=== PATIENT | female | born 1995 | race Caucasian/White ===

== ENCOUNTER 2017-01-03 15:10 | Emergency (ER) | payer MEDICAID ==
[~2017-01-03] VITALS: Ht 152.4 cm; Wt 50.3 kg
[~2017-01-03 15:10] MED LIST: NAPROSYN 500MG500 MG PO; NO HOME MEDS; NOMEDS; Tramadol HCl50 MG PO
[2017-01-03] MEDS ORDERED: MICROGESTIN 1/21 TAB PO (15:22)
--- NOTE | 2017-01-03 15:28 | Urgent Treatment Center Report ---
History of Present Issue Date/Time Seen by Provider 01/03/17 1527 Visit Reason Pt arrived:Walked Presenting Problem:PT STATES SORE THROAT, GWEN EAR PAIN, AND SINUS PRESSURE X2 DAYS Location if Accident: Onset of symptoms date/time:01/01/17/ or onset unknown for:MEDICAL HX UNKNOWN Have you (or family members/close friends) recently traveled outside the [place]? N If Yes, where/when: Have you had exposure to infectious disease within the past month? TB? Other? Specify: c/o "my sinuses. I have already been seen for this on Tuesday. I was prescribed amoxicillin but it is not helping. I am wanting to get a zpack because they work better and so much faster for me." pt c/o rhinorrhea, nasal congestion, PND leading to nausea, sinus pressure, gwen ear fullness, sore throat in the morning. Symptoms started late Tuesday, 3 days ago. Was seen at urgent care in [place] on Tuesday "because this was kicking my butt". Reports dx sinusitis and prescribed amoxicillin. No relief with tylenol and amoxicillin. Hasn't taken or tried anything else. No fever, aches, chills. Denies any symptoms prior to Tuesday evening. Source patient Exam Limitations no limitations ALLERGIES Coded Allergies: No Known Allergies (01/03/17) Home Medications Reported Medications NORETHINDRONE AC-ETH ESTRADIOL (Microgestin 21 1-20 Tablet) 1 TAB PO DAILY History Medical History General CAD? No Angina: No [place]: No Hypertension? No Hyperlipidemia? No CHF? No DVT? No PE? No COPD? No Asthma? No Anemia? No GERD? No Gastric ulcers? No GI Bleed? No Hernia? No Thyroid Problems? No Hypothyroidism? No CVA? No Seizures? No Diabetes? No Renal Insuffiency? No UTI? No Stones? No BPH? No GB Disease: No Nephritic Syndrome? No Asplenia? No Hepatitis? No Sickle Cell Disease? No Arthritis? No Migraines? No Cataracts? No Glaucoma? No MRSA? No HIV? No TB? No Anxiety? No Depression? No Cancer? No More? 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 Respiratory denies cough Gastrointestinal denies abdominal pain, denies diarrhea, denies vomiting Musculoskeletal see HPI Skin denies rash Psychiatric/Neurological see HPI, denies weakness, denies other (dizziness) Physical Exam Vital Signs Vital Signs Date Time Temp Pulse Resp B/P Pulse O2 O2 Flow FiO2 Ox Delivery Rate 01/03 1521 98.2 76 20 113/67 98 General Appearance normal appearance, no apparent distress Eye Exam - bilateral eye normal exam Ear, Nose, Throat normal ENT inspection (x/ thin PND) Neck non-tender, supple Respiratory Status No: respiratory distress. Lung Sounds anterior: lungs clear. posterior: lungs clear. bilateral: lungs clear. Cardiovascular regular rate/rhythm, no peripheral edema, no murmur Neurologic alert, oriented x 3 Mental status normal mood/affect Skin normal color, warm/dry Lymphatic no adenopathy Medical Decision Making LABS/Meds/Orders Pt receiving controlled substance in ED? No Departure Departure Time of Disposition 1546 Disposition DC Home or Self Care(routine) Clinical Impression Primary Impression: Upper respiratory virus Condition STABLE Referrals Adry ONTIVEROS,Griffin (Family) Follow up IMMEDIATELY for new or worsening symptoms OR no noticeable improvement over the next 48-72 hours. 911 for difficulty breathing or swallowing. Patient Instructions DI for Viral Upper Respiratory Infection -- Adult Additional Instructions Your symptoms are likely viral. An antibiotic will not make you feel better. This is why the amoxicillin hasn't helped. Antibiotics are for bacterial infections. The zpack won't help a virus either. Viruses have to run their course with treating the symptoms. I understand you would prefer to have an antibiotic because you know your body and I will give you one only for that reason. Remember that as we discussed, antibiotics do come with side effects and risk including allergic reactions and resistance. Resistance to antibiotics can cause serious complications in the future if there is no antibiotic to treat an infection you have. Carefully consider this before starting antibiotics for symptoms that are likely viral. I STRONGLY enc. you to try the conservative measures and over the counter medications prior to starting the antibiotic as these have a better chance of helping you feel better. STOP the amoxicillin as we discussed. * No sign of bacterial infection. Likely viral. Virus can take 7-14 days to run their course. Antibiotic prescribed only because you wanted it, not because I think it will help. * Monitor Temp. Tylenol every 4 hours as needed and/or ibuprofen every 6 hours as needed (as long as your primary care doctor has told you that it is ok to take both) for fever/aches/pain. ER if fever no less than 101 despite tylenol and ibuprofen * Encourage fluids, water, gatorade, powerade, pedialyte if infant/toddler/child * warm salt water gargles * warm fluids * sore throat lozenges * sleep elevated * humidifier/vaporizer * OTC sudafed. Ask the pharmacist for this. Prescription not required. * flonase 2 sprays each nostril daily but may take 2-3 days to notice improvement with it. Discharge Counseling Counseled pt/family regarding diagnosis, medications/RX, home care, follow up needs Prescriptions Current Visit Scripts Azithromycin (Zithromycin (Z-STEFF) 250MG Tab) 250 MG PO DAILY #6 TAB TAKE TWO (2) TABLETS ON DAY 1, THEN ONE (1) TABLET DAY #2 THRU #5 at [id number]
[2017-01-03] MEDS ORDERED: ZITHROMAX Z PA250 MG PO (15:51)
[2017-01-03 16:07] VITALS: BP 113/67
== END 2017-01-03 16:07 | disposition home or self-care (01) ==
LOC: UTC 15:10
DX: J06.9 Acute upper respiratory infection, unspecified (principal)

== ENCOUNTER 2017-02-16 10:42 | Emergency (ER) | payer MEDICAID ==
[~2017-02-16] VITALS: Ht 152.4 cm; Wt 49.9 kg
[~2017-02-16 10:42] MED LIST changes: +MICROGESTIN 1/21 TAB PO; +ZITHROMAX Z PA250 MG PO
[2017-02-16 10:58] LABS: URINE BILIRUBIN - DIPSTICK NEGATIVE (NEG); URINE BLOOD NEGATIVE (NEG)
[2017-02-16] MEDS ORDERED: DIFLUCAN150 MG PO (11:09)
--- NOTE | 2017-02-16 11:10 | Urgent Treatment Center Report ---
History of Present Issue Date/Time Seen by Provider 02/16/17 1100 Visit Reason Pt arrived:Walked Presenting Problem:PT C/O ITCHING/BURNING WITH URINATION X2 DAYS Location if Accident: Onset of symptoms date/time:/ or onset unknown for:MEDICAL HX UNKNOWN Have you (or family members/close friends) recently traveled outside the [place]? N If Yes, where/when: Have you had exposure to infectious disease within the past month? TB? Other? Specify: Patient state that she has recently been on some antibiotics for UTI state that after completeing the antibiotics she noticed that she was having some burning outside of her vaginal area after she urinates then itching State that she has also noticed that she has a thick white cottage cheese like odorless discharge. State that she often gets yeast infections after antibiotics and this feels like a yeast infection ALLERGIES Coded Allergies: No Known Allergies (01/03/17) Home Medications Active Scripts Azithromycin (Zithromycin (Z-STEFF) 250MG Tab) 250 MG PO DAILY #6 TAB Prov: 01/03/17 Reported Medications NORETHINDRONE AC-ETH ESTRADIOL (Microgestin 21 1-20 Tablet) 1 TAB PO DAILY History Medical History General CAD? No Angina: No [place]: No Hypertension? No Hyperlipidemia? No CHF? No DVT? No PE? No COPD? No Asthma? No Anemia? No GERD? No Gastric ulcers? No GI Bleed? No Hernia? No Thyroid Problems? No Hypothyroidism? No CVA? No Seizures? No Diabetes? No Renal Insuffiency? No UTI? No Stones? No BPH? No GB Disease: No Nephritic Syndrome? No Asplenia? No Hepatitis? No Sickle Cell Disease? No Arthritis? No Migraines? No Cataracts? No Glaucoma? No MRSA? No HIV? No TB? No Anxiety? No Depression? No Cancer? No More? No Immunization HX Ped.Immunizations UTD Yes DT/Tetanus 1-4 YRS Surgical Hx Previous Surgery?Y Tonsils EARTUBES Social History Smoking Hx Smoker: Never Smoker Tobacco: No Alcohol Alcohol: No Review of Systems All Other Systems Reviewed and Negative Genitourinary other (burning and itching vagina). Physical Exam Vital Signs Vital Signs Date Time Temp Pulse Resp B/P Pulse O2 O2 Flow FiO2 Ox Delivery Rate 02/16 1047 98.0 87 20 120/69 100 General Appearance normal appearance, WD/WN, no apparent distress Respiratory Status Yes: trachea midline, chest symmetrical, non tender chest. No: respiratory distress. Cardiovascular normal exam, regular rate/rhythm, no peripheral edema Neurologic alert, normal exam, oriented x 3 Comments Patient did not want to undergo vaginal exam. Complains of itching and burning around the vaginal opening with thick white cottage cheese like odorless discharge. Recently completed coarse of antibiotics. Has had yeast infections before and describes this as being familiar and like prior yeast infections she has had in the past Medical Decision Making LABS/Meds/Orders Pt receiving controlled substance in ED? No Results/Orders Laboratory Tests 02/16/17 1053: Urine Color YELLOW, Urine Appearance Clear, Urine pH 6.0, Ur Specific [place] 1.025, Urine Protein 3+ H, Urine Ketones NEGATIVE, Urine Blood NEGATIVE, Urine Nitrate NEGATIVE, Urine Bilirubin NEGATIVE, Urine Urobilinogen 0.2, Ur Leukocyte Esterase 1+ H, Urine Glucose NEGATIVE Orders Procedure Date/time Status [facility] 02/16 1053 Complete Departure Departure Time of Disposition 1106 Disposition DC Home or Self Care(routine) Clinical Impression Primary Impression: Yeast infection of the vagina Condition STABLE Referrals Jarvis ONTIVEROS,Lion Rider MD,Griffin (Family) Patient Instructions DI for Vaginal Yeast Infection, Vaginal Yeast Infection Additional Instructions Take medication as prescribed FOllow up with family doctor or OBGYN if symptoms persist REturn if needed Avoid bathes, bubble bathes and sex untill symptoms gone Discharge Counseling Counseled pt/family regarding diagnosis, medications/RX, home care, follow up needs Prescriptions Current Visit Scripts Fluconazole (Diflucan 150MG) 150 MG PO DAILY #2 TAB Take one tablet today then take second tablet in 72 hours at 1103
[2017-02-16 11:12] VITALS: BP 120/69
--- OUTSIDE RECORDS SUMMARY | 2017-02-19 08:18 | External Medical Summary Rpt | CCD ---
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 ALICIA FOR IM USE IAADIADOO 13526 [facility] 6 N URGENT ABD STREPTOCO CARE CCUS GROUP A GLUC BLD 04069 [facility] GLUC MNTR 6 DIST HLTH DIST HLTH DEV DEPT DEPT CLEARED REMIGIO FLOOD FDA SPEC HOME USE IAADIADOO 28894 [facility] DOMINGUEZ 6 N URGENT ABD INFLUENZA CARE ARTHROCEN [place] [facility] PENDLETON[facility] 6 ORTHOPAED ORTHOPAED ASPIR&/IN IC & HAND IC & HAND J INTERM JT/BURS W/O US INJECTION J1030 [facility] NESS 6 ORTHOPAED MAT METHYLPRE IC & HAND DNISOLONE ACETATE 40 MG INJECTION 37415 [facility] 5 [facility]OSTAL[facility] HOSP HOSP ARTHROGRA PHY/ CT/MRI ARTHG FLUOROSCO 38613 [facility] PIC 5 RADIOLOGY [facility] NEEDLE PLACEMENT ADD ON LOCM Q9967 [facility] [phone] PENTECOSTALISM PENTECOSTALISM MG/ML HOSP HOSP IODINE CONCENTRA TION PER ML MRI ANY 59594 [facility] JT UPPER 5 RADIOLOGY [facility] EXTREMITY ASSOC W/CONTRAS T MATRL INJ A9577 [facility]AL GADOBENAT 5 PENTECOSTALISM PENTECOSTALISM E HOSP HOSP DIMEGLUMI NE MULTIHANC E PER ML GLUC BLD 00034 [facility] GLUC MNTR 5 DIST HLTH DIST HLTH DEV DEPT DEPT CLEARED REMIGIO FLOOD FDA SPEC HOME USE RADEX 61597 [facility] NESS SHOULDER 5 ORTHOPAED MAT COMPLETE IC & HAND MINIMUM 2 VIEWS IADNA 39344 [facility] NEISS[facility]IA 5 DISTRICT DISTRICT TH DEPT HLTH DEPT GONORRHOE ALICIA ALICIA AE AMPLIFIED PROBE TQ IADNA 21250 [facility] CHLAMYDIA [address] [facility] DEPT HLTH DEPT TRACHOMAT ALICIA ALICIA IS AMPLIFIED PROBE TQ BLOOD 83863 FAMILY FAMILY COUNT 5 CARE CARE COMPLETE ASSOCIATE ASSOCIATE AUTO&AUTO S S DIFRNTL WBC BLOOD 17522 FAMILY FAMILY COUNT 4 CARE CARE COMPLETE ASSOCIATE ASSOCIATE AUTO&AUTO S S DIFRNTL WBC IAADIADOO 43085 FAMILY MULBERRY 4 CARE DAVID STREPTOCO ASSOCIATE CCUS S GROUP A CUL BACT 66928 COMBINED COMBINED XCPT 4 PHYSICIAN PHYSICIAN URINE S LA S LA BLOOD/STO OL AEROBIC ISOL ANTIBODY 06373 COMBINED COMBINED CHLAMYDIA 4 PHYSICIAN PHYSICIAN S LA S LA RADEX 93792 TONI TONI SHOULDER 2 ALLEY ALLEY COMPLETE MINIMUM 2 VIEWS E-STIM G0283 [facility] MISTRY 1/> AREAS 2 [facility] OTH THAN INC INC WND CARE PART TX PLAN THERAPEUT 60768 [facility] MISTRY IC PX 1/> 2 [facility] AREAS INC INC EACH 15 MIN EXERCISES APPL 69553 [facility] MISTRY MODALITY 2 [facility] 1/> AREAS INC INC VASOPNEUM ATIC DEVICES APPL 96441 [facility] MISTRY MODALITY 2 [facility] 1/> AREAS INC INC VASOPNEUM ATIC DEVICES THERAPEUT 32009 [facility] MISTRY IC PX 1/> 2 [facility] AREAS INC INC EACH 15 MIN EXERCISES E-STIM G0283 [facility] MISTRY 1/> AREAS 2 [facility] OTH THAN INC INC WND CARE PART TX PLAN E-STIM G0283 [facility] MISTRY 1/> AREAS 2 [facility]OS[facility] OTH THAN INC INC WND CARE PART TX PLAN THERAPEUT 74453 [facility] MISTRY IC PX 1/> 2 [facility] AREAS INC INC EACH 15 MIN EXERCISES APPLICATI 79132 [facility] MISTRY ON 2 [facility] MODALITY INC INC 1/> AREAS HOT/COLD PACKS APPLICATI 34393 [facility] MISTRY ON 2 [facility] MODALITY INC INC 1/> AREAS HOT/COLD PACKS APPL 25569 [facility] MISTRY MODALITY 2 [facility] 1/> AREAS INC INC VASOPNEUM ATIC DEVICES APPL 82485 [facility] MISTRY MODALITY 2 [facility] 1/> AREAS INC INC IONTOPHOR ESIS EA 15 MIN THERAPEUT 44420 [facility] MISTRY IC PX 1/> 2 [facility] AREAS INC INC EACH 15 MIN EXERCISES THERAPEUT 70073 [facility] MISTRY IC PX 1/> 2 [facility] AREAS INC INC EACH 15 MIN EXERCISES APPL 61387 [facility] MISTRY MODALITY 2 [facility] 1/> AREAS INC INC IONTOPHOR ESIS EA 15 MIN APPL 22258 [facility] MISTRY MODALITY 2 [facility] 1/> AREAS INC INC ELEC STIMJ UNATTENDE D APPLICATI 75431 [facility] MISTRY ON 2 [facility] MODALITY INC INC 1/> AREAS HOT/COLD PACKS APPL 71235 [facility] MISTRY MODALITY 2 [facility] 1/> AREAS INC INC VASOPNEUM ATIC DEVICES APPL 88116 [facility] FEDE MODALITY 2 [facility] 1/> AREAS INC INC ELEC STIMJ UNATTENDE D APPL 29053 [facility] MISTRY MODALITY 2 [facility] 1/> AREAS INC INC IONTOPHOR ESIS EA 15 MIN THERAPEUT 85356 [facility] MISTRY IC PX 1/> 2 [facility] AREAS INC INC EACH 15 MIN EXERCISES THERAPEUT 79913 [facility] MISTRY IC PX 1/> 2 [facility] AREAS INC INC EACH 15 MIN EXERCISES APPL 46806 [facility] MISTRY MODALITY 2 [facility] 1/> AREAS INC INC IONTOPHOR ESIS EA 15 MIN APPL 90173 [facility] MISTRY MODALITY 2 [facility] 1/> AREAS INC INC ELEC STIMJ UNATTENDE D APPL 82863 [facility] MISTRY MODALITY 2 [facility] 1/> AREAS INC INC VASOPNEUM ATIC DEVICES RADEX 31670 TONI TONI SHOULDER 2 ALLEY ALLEY COMPLETE MINIMUM 2 VIEWS RADEX 43146 TONI TONI SPINE 2 ALLEY ALLEY CERVICAL 4 OR 5 VIEWS PHYSICAL 72123 [facility]RY THERAPY 2 [facility] EVALUATIO INC INC N DESTRUCTI 28520 FAMILY FAMILY ON BENIGN 2 CARE CARE LESIONS ASSOCIATE ASSOCIATE UP TO 14 S S DEEP D9220 [facility] SEDATION/ 1 FOR HAVEN GENERAL ORAL&MAXI ANESTHESI LLOFA A-1ST 30 MINUTES THER 35571 [facility] PROPH/DX 1 FOR HAVEN NJX IV ORAL&MAXI PUSH LLOFA SINGLE/1S T SBST/DRUG ORTHOPANT 50547 [facility] OGRAM 1 FOR HAVEN ORAL&MAXI LLOFA IAADIADOO 90527 FAMILY MULBERRY 1 CARE DAVID STREPTOCO ASSOCIATE CCUS S GROUP A DESTRUCTI 62430 FAMILY FAMILY ON 1 CARE CARE PREMALIGN ASSOCIATE ASSOCIATE ANT S S LESION 1ST URNLS DIP 25765 [facility]RY 1 [facility] STICK/TAB INC INC LET REAGENT AUTO MICROSCOP Y RADEX 47494 [facility]ISTRY SPINE 1 [facility] THORACIC INC INC 3 VIEWS URINE 28609 [facility] MISTRY 1 [facility] TEST INC INC VISUAL COLOR CMPRSN METHS BLOOD 09089 FAMILY FAMILY COUNT 0 CARE CARE COMPLETE ASSOCIATE ASSOCIATE AUTO&AUTO S S DIFRNTL WBC IAADIADOO 46890 CHRISTOPHER J 0 CARE INFLUENZA ASSOCIATE S RADEX 67266 [facility] MISTRY HAND 0 [facility] MINIMUM 3 INC INC VIEWS BLOOD 26161 FAMILY MULBERRY, COUNT 0 CARE LEILANI T COMPLETE ASSOCIATE AUTO&AUTO S DIFRNTL WBC RADEX 39135 LOLA TONI, HAND 9 MEDICAL GHADA MINIMUM 3 IMAGING VIEWS ASSOCIATE S IIV3 27526 [facility] VACCINE 9 [facility] VIRUS 0.5 BANK ACCT ML DOSAGE IM USE MPSV4 95697 FAMILY MULBERRY, VACCINE 9 CARE LEILANI T GROUPS ASSOCIATE ACYW-135 S SUBQ USE 4VHPV 70256 FAMILY MULBERRY, VACCINE 3 9 CARE LEILANI T DOSE ASSOCIATE SCHEDULE S FOR IM USE IAADIADOO 47504 DARY[facility], 9 CARE R ANNABEL STREPTOCO ASSOCIATE CCUS S GROUP A ANALGESIA D9230 MOUNA MOUNA 9 DMD, DMD, [facility] S INHALATIO N OF NITROUS OXIDE 3D 72998 [facility] VÁZQUEZ, RENDERING 8 MEDICAL CLYDE P W/INTERP IMAGING & [place] [address] LOLA VÁZQUEZ, HEAD/BRAI 8 MEDICAL CLYDE P N W/O IMAGING CONTRAST ASSOCIATE MATERIAL S RADEX 80980 LOLA TONI, SPINE 8 MEDICAL GHADA CERVICAL IMAGING 6 OR MORE ASSOCIATE VIEWS S IAADIADOO 59541 FAMILY BRITO, 8 CARE John JIN STREPTOCO ASSOCIATE CCUS S GROUP A COLLECTIO 49665 [facility] DARYL, N 8 CARE John JIN CAPILLARY ASSOCIATE BLOOD S SPECIMEN IAADIADOO 84396 [facility] DARYL, 8 CARE John JIN STREPTOCO ASSOCIATE CCUS S GROUP A OPHTH 47592 SUNNI MOELLER, [facility] 8 TIFFANIE A TIFFANIE A XM&EVAL COMPRHNSV ESTAB PT 1/> ANALGESIA D9230 MOUNA MOUNA 8 DMD, DMD, [facility] S INHALATIO N OF NITROUS OXIDE BLOOD 66882 FAMILY MULBERRY, COUNT 8 CARE LEILANI T COMPLETE ASSOCIATE AUTO&AUTO S DIFRNTL WBC Encounters Encounter Start End Date Code Location Performer Type Date OFFICE 74711 [facility] 7 [facility] T VISIT 5 INC MINUTES [facility]OS[facility] - 7 7 [facility] OUTPATIEN INC T OFFICE 40651 [facility] AL[facility] OUTPATIEN 7 7 N URGENT T VISIT CARE 15 MINUTES OFFICE 53905 [facility] Kerri OUTPATIEN 7 7 PHYSICIAN T VISIT GROUP 15 MINUTES OFFICE 66749 [facility] GIBRAN OUTPATIEN 7 7 PHYSICIAN T VISIT GROUP 25 MINUTES OFFICE 18790 [facility] G[facility]AN OUTPATIEN 7 7 PHYSICIAN T VISIT GROUP 25 MINUTES OFFICE 46008 [facility] OUTPATIEN 6 6 PRIMARY BENJAMIN T NEW 45 CARE MINUTES OFFICE 20537 [facility] BERRIOS OUTPATIEN 6 6 PHYSICIAN SHANTAL T VISIT S GROUP 15 MINUTES OFFICE 80881 [facility] OUTPATIEN 6 6 PHYSICIAN SHANTAL T NEW 30 S GROUP MINUTES OFFICE 51220 [facility]ILY DARYL OUTPATIEN 6 6 CARE R H T VISIT ASSOCIATE 15 S MINUTES OFFICE 37649 [facility] 6 [facility] T VISIT DEPT DEPT 10 REMIGIO BOYCENicola MINUTES OFFICE 13952 [facility] RABIEE OUTPATIEN 6 6 N URGENT ABD T VISIT CARE 15 MINUTES OFFICE 08306 [facility] T VISIT 5 HLTH DEPT HLTH DEPT MINUTES [facility] OFFICE 81625 [facility] T VISIT HLTH DEPT HLTH DEPT 10 [facility] MINUTES OFFICE 12125 [facility] R[facility] OUTPATIEN 6 6 N URGENT ABD T VISIT CARE 15 MINUTES OFFICE 05939 [facility] 6 6 [facility] T VISIT DEPT DEPT 10 REMIGIO FLOOD MINUTES OFFICE 43999 [facility] 6 6 [facility] T VISIT DEPT DEPT 10 REMIGIO FLOOD MINUTES OFFICE 36055 [facility] OUTPATIEN 6 6 N URGENT ABD T NEW 30 CARE MINUTES HOSPITAL [facility]AL - 5 5 [facility] OUTPATIEN HOSP T OFFICE 89448 [facility] JULIA OUTPATIEN 5 5 PHYSICIAN PIEDAD T VISIT S GROUP 15 MINUTES OFFICE 66386 [facility] 5 5 [facility] T VISIT DEPT DEPT 10 REMIGIO FLOOD MINUTES OFFICE 17682 [facility] 5 5 [facility] T VISIT DEPT DEPT 10 REMIGIO FLOOD MINUTES OFFICE 32789 LOLA NESS OUTPATIEN 5 5 ORTHOPAED MAT T NEW 30 IC & HAND MINUTES OFFICE 91761 [facility] 5 5 [facility] T VISIT DEPT DEPT 10 REMIGIO FLOOD MINUTES OFFICE 20050 [facility] DARYL OUTPATIEN 5 5 CARE R H T VISIT ASSOCIATE 15 S MINUTES OFFICE [address] [facility] [address] OUTPATIEN 5 [facility] 15 MINUTES OFFICE 35965 [facility] 5 5 [facility] V[facility] 15 MINUTES PERIODIC 10041 [facility] PREVENTIV 5 5 [facility] E MED EST HLTH DEPT TH DEPT PATIENT [facility] OFFICE 11214 FAMILY DARYL OUTPATIEN 5 5 CARE R H T VISIT ASSOCIATE 15 S MINUTES PERIODIC 86241 [facility] FRYMAN PREVENTIV 5 5 PHYSICIAN EUG E MED EST S GROUP PATIENT OFFICE 16691 FAMILY MULBERRY OUTPATIEN 5 5 CARE DAVID T VISIT ASSOCIATE 15 S MINUTES OFFICE 66665 [facility] FRYMAN OUTPATIEN 5 5 PHYSICIAN EUG T VISIT S GROUP 15 MINUTES OFFICE 16017 FAMILY MULBERRY OUTPATIEN 4 4 CARE DAVID T VISIT ASSOCIATE 15 S MINUTES OFFICE 49819 [facility] 4 4 [facility] T VISIT DEPT DEPT 10 REMIGIO FLOOD MINUTES OFFICE 68087 [facility] AARON OUTPATIEN 4 4 PHYSICIAN PIEDAD T VISIT S GROUP 15 MINUTES INITIAL 56816 [facility]T PREVENTIV 4 4 HARJINDER HARJINDER E MEDICINE NEW PT AGE 12-17 YR OFFICE 20663 [facility] 4 4 [facility] T VISIT [facility] DEPT 10 ALICIA ALICIA MINUTES Emergency YEHUDA Mistry MD (ER) 3 10:49 3 12:35 [facility] Emergency YEHUDA Newman MD (ER) 3 21:35 3 22:40 [facility] OFFICE 26282 MULBERRY MULBERRY OUTPATIEN 3 3 DAVID DAVID T VISIT 15 MINUTES OFFICE 20715 MULBERRY MULBERRY OUTPATIEN 2 2 DAVID DAVID T VISIT 15 MINUTES OFFICE 93041 [facility] OUTPATIEN 2 2 T VISIT 15 MINUTES HOSPITAL [facility] - 2 2 [facility] OUTPATIEN INC T OFFICE 68439 MULBERRY MULBERRY OUTPATIEN 2 2 DAVID DAVID T VISIT 15 MINUTES HOSPITAL [facility] - 2 2 [facility] OUTPATIEN INC T OFFICE 54728 MULBERRY MULBERRY OUTPATIEN 2 2 DAVID DAVID T VISIT 15 MINUTES OFFICE 68208 FAMILY OUTPATIEN 2 2 CARE T VISIT ASSOCIATE 15 S MINUTES OFFICE 49164 [facility] LUJAN OUTPATIEN 2 2 T VISIT 10 MINUTES OFFICE 86606 [facility] OUTPATIEN 2 2 [facility] 10 MINUTES OFFICE 38132 [facility] OUTPATIEN 2 2 [facility] 10 MINUTES OFFICE 76540 [facility]E OUTPATIEN 2 2 [facility] 10 MINUTES OFFICE 03879 APOLLO BUSTILLOS OUTPATIEN 2 2 CHR CHR T VISIT 10 MINUTES OFFICE 93871 JOSEPH RUIZ OUTPATIEN 2 2 GABBY GABBY T VISIT 15 MINUTES OFFICE 41077 RAMONA GREENE OUTPATIEN 1 1 LANNY LANNY T VISIT 10 MINUTES OFFICE 34226 [facility] MISTRY OUTPATIEN 1 1 [facility] 10 MINUTES OFFICE 55026 [facility] OUTPATI[facility] 1 1 FOR HAVEN T NEW 20 ORAL&MAXI MINUTES LLOFA OFFICE 20776 [facility] MISTRY OUTPATIEN 1 1 [facility] 10 MINUTES OFFICE 79164 FAMILY DARYL OUTPATIEN 1 1 CARE R H T VISIT ASSOCIATE 15 S MINUTES OFFICE 56228 FAMILY GARTH OUTPATIEN 1 1 CARE DAVID T VISIT ASSOCIATE 15 S MINUTES OFFICE 44145 [facility] MISTRY OUTPATIEN 1 1 [facility] 10 MINUTES OFFICE 38021 [facility] MISTRY OUTPATIEN 1 1 [facility] 15 MINUTES EMERGENCY 30968 [facility] 1 1 [facility] DEPARTMEN INC T VISIT LOW/MODER SEVERITY [facility]OSPITAL [facility] - 1 1 [facility] OUTPATIEN INC T OFFICE 96200 FAMILY CHRISTOPHER J OUTPATIEN 0 0 CARE T VISIT ASSOCIATE 15 S MINUTES EMERGENCY 77339 [facility] 0 0 [facility] DEPARTMEN INC T VISIT MODERATE SEVERITY EMERGENCY 51811 DOLORES GLASS 0 0 EMERGENCY III [facility] T VISIT MODERATE SEVERITY HOSPITAL [facility] - 0 0 [facility] OUTPATIEN INC T OFFICE 04056 FAMILY MULFLORESITA OUTPATIEN 0 0 CARE DAVID T VISIT ASSOCIATE 15 S MINUTES INITIAL 29510 SANDRA DOMINGUEZ PREVENTIV 0 0 N URGENT ABD E CARE MEDICINE NEW PT AGE 12-17 YR OFFICE 24937 FAMILY LIANG, OUTPATIEN 0 0 CARE LEILANI T T VISIT ASSOCIATE 15 S MINUTES OFFICE 48938 FAMILY LIANG, OUTPATIEN 9 9 CARE LEILANI T T VISIT ASSOCIATE 15 S MINUTES HOSPITAL [facility] - 9 9 [facility] OUTPATIEN INC T PERIODIC 05146 FAMILY LIANG, PREVENTIV 9 9 CARE LEILANI T E MED EST ASSOCIATE PATIENT S OFFICE 78087 [facility] GAMALIEL OUTPATIEN 9 9 HEALTH T VISIT CENTRAL ELEMENTAR 15 BANK ACCT Y SCHOOL MINUTES HEALTH NURSE OFFICE 09680 FAMILY BRITO, OUTPATIEN 9 9 CARE R ANNABEL T VISIT ASSOCIATE 15 S MINUTES PERIODIC 82826 [facility] GAM[facility]IEL PREVENTIV 9 9 HEALTH E MED EST CENTRAL ELEMENTAR PATIENT BANK ACCT Y SCHOOL HEALTH NURSE OFFICE 52548 [facility] OUTPATIEN 9 9 HEALTH T VISIT CENTRAL ELEMENTAR 15 BANK ACCT Y SCHOOL MINUTES HEALTH NURSE EMERGENCY 54176 BALDEV HOLLAND, DEPT 8 8 NATIONAL RONDAL E VISIT CORPORATI HIGH ON SEVERITY& THREAT [facility] OFFICE 52208 FAMILY BRITO, OUTPATIEN 8 8 CARE R ANNABEL T VISIT ASSOCIATE 15 S MINUTES OFFICE 03079 FAMILY BRITO, OUTPATIEN 8 8 CARE R ANNABEL T VISIT ASSOCIATE 15 S MINUTES OFFICE 93182 [facility] GAMALIEL OUTPATIEN 8 8 HEALTH T VISIT CENTRAL ELEMENTAR 15 BANK ACCT Y SCHOOL MINUTES HEALTH NURSE OFFICE 77383 [facility] GAMALIEL OUTPATIEN 8 8 HEALTH T NEW 10 CENTRAL ELEMENTAR MINUTES BANK ACCT Y SCHOOL HEALTH NURSE OFFICE 24651 FAMILY LIANG, OUTPATIEN 8 8 CARE LEILANI T T VISIT ASSOCIATE 15 S MINUTES OFFICE 11024 FAMILY JOSE RAMON LIANG 8 8 CARE LEILANI Narvaez VISIT ASSOCIATE 15 S MINUTES
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
--- OUTSIDE RECORDS SUMMARY | 2017-02-19 08:22 | External Medical Summary Rpt | CCD ---
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 NEW 20 ORAL&MAXI MINUTES LLOFA OFFICE 71094 [facility] OUTPATI[facility] 1 1 [facility] 10 MINUTES OFFICE 14909 FAMILY DARYL OUTPATIEN 1 1 CARE R H T VISIT ASSOCIATE 15 S MINUTES OFFICE 34111 FAMILY GARTH OUTPATIEN 1 1 CARE DAVID T VISIT ASSOCIATE 15 S MINUTES OFFICE 13575 [facility] OUTPATI[facility] 1 1 [facility] 10 MINUTES OFFICE 61889 [facility] MISTRY OUTPATIEN 1 1 [facility]ES [facility] OUTPATI[facility] T EMERGENCY 39188 [facility] 1 1 [facility] DEPARTMEN INC T VISIT LOW/MODER SEVERITY OFFICE 92918 FAMILY CHRISTOPHER J OUTPATIEN 0 0 CARE T VISIT ASSOCIATE 15 S MINUTES [facility]OSP[facility] - [facility] 0 [facility] OUTPATIEN INC T EMERGENCY 99417 DOLORES GLASS 0 0 EMERGENCY III [facility] DEPART[facility] T VISIT MODERATE SEVERITY EMERGENCY 22537 [facility] 0 0 [facility]PART[facility] T VISIT MODERATE SEVERITY OFFICE 27839 FAMILY MULBERRY OUTPATIEN 0 0 CARE DAVID T VISIT ASSOCIATE 15 S MINUTES INITIAL 89794 SANDRA DOMINGUEZ PREVENTIV 0 0 N URGENT ABD E CARE MEDICINE NEW PT AGE 12-17 YR OFFICE 07795 FAMILY GARTH, OUTPATIEN 0 0 CARE LEILANI T T VISIT ASSOCIATE 15 S MINUTES OFFICE 61256 FAMILY GARTH, OUTPATIEN 9 9 CARE LEILANI T T VISIT ASSOCIATE 15 S MINUTES [facility] - 9 9 [facility] T PERIODIC 81183 FAMILY MULBERRY, PREVENTIV 9 9 CARE LEILANI T E MED EST ASSOCIATE PATIENT S OFFICE 06289 [facility] OUT[facility] 9 9 HEALTH T VISIT CENTRAL ELEMENTAR 15 BANK ACCT Y SCHOOL MINUTES HEALTH NURSE OFFICE 79859 FAMILY DARYL, OUTPATIEN 9 9 CARE R ANNABEL T VISIT ASSOCIATE 15 S MINUTES PERIODIC 60051 [facility] PREVENTIV 9 9 HEALTH E MED EST CENTRAL ELEMENTAR PATIENT BANK ACCT Y SCHOOL - HEALTH NURSE OFFICE 01523 [facility] OUTPATIEN 9 9 HEALTH T VISIT CENTRAL ELEMENTAR 15 BANK ACCT Y SCHOOL MINUTES HEALTH NURSE EMERGENCY 12904 BALDEV HOLLAND, DEPT 8 8 NATIONAL RONDAL E VISIT CORPORATI HIGH ON SEVERITY& THREAT FUN OFFICE 25476 FAMILY DARYL, OUTPATIEN 8 8 CARE R ANNABEL T VISIT ASSOCIATE 15 S MINUTES OFFICE 00055 FAMILY DARYL, OUTPATIEN 8 8 CARE R ANNABEL T VISIT ASSOCIATE 15 S MINUTES OFFICE 84721 [facility] OUTPATIEN 8 8 HEALTH T VISIT CENTRAL ELEMENTAR 15 BANK ACCT Y SCHOOL MINUTES HEALTH NURSE OFFICE 24754 [facility] OUTPATIEN 8 8 HEALTH T NEW 10 CENTRAL ELEMENTAR MINUTES BANK ACCT Y SCHOOL HEALTH NURSE OFFICE 35614 JOSE RAMON GUILLORY 8 8 CARE LEILANI Narvaez VISIT ASSOCIATE 15 S MINUTES OFFICE 45922 JOSE RAMON GUILLORY 8 8 CARE LEILANI Narvaez VISIT ASSOCIATE 15 S MINUTES
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
--- OUTSIDE RECORDS SUMMARY | 2017-02-19 08:23 | External Medical Summary Rpt ---
Author Author RIVER Hybrent, RIVER Hybrent Organization [employer] Address Unknown Phone Unavailable Results CHLAMYDIA AND GONORRHEA TESTING Observa Value Referen Units Interpr Notes Date tion ce etation Range COLLECT D. 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 in tion in 10:00 source source source source AM data data data data ETHNICI WHITE, No No No No Oct 22 TY NON-HIS informa informa informa informa 2015 PANIC tion in tion in tion in tion in 10:00 source source source source AM data data data data KIT No No No No Oct 22 EXPIRAT 5 informa informa informa informa 2015 ION tion in tion in tion in tion in 10:00 DATE source source source source AM data data data data SYMPTOM NO No No No No Oct 22 S informa informa informa informa 2015 tion in tion in tion in tion in 10:00 source source source source AM data data data data REASON VOLUNTE No No No No Oct 22 FOR ER/MEDI informa informa informa informa 2015 REQUEST LEYDI tion in tion in tion in tion in 10:00 PROBLEM source source source source AM data data data data SPECIME URINE No No No No Oct 22 N informa informa informa informa 2015 SOURCE tion in tion in tion in tion in 10:00 source source source source AM data data data data PREGNAN NO No No No No Oct 22 T informa informa informa informa 2015 tion in tion in tion in tion in 10:00 source source source source AM data data data data CHART [id number]- [id number] No No No Oct 22 NUMBER [id number] informa informa informa informa 2015 tion in tion in tion in tion in 10:00 source source source source AM data data data data Chlamyd NEGATIV No No No NEGATIV Oct 22 ia E informa informa informa E 2015 trachom tion in tion in tion in RESULT= 10:00 atis source source source WITHIN AM rRNA data data data NORMAL [Presen ce] in LIMITSP Unspeci OSITIVE fied specime RESULT= n by Probe & ABNORMA target LEQUIVO LEYDI amplifi RESULT= cation method INDETER MINATEU NSATISF ACTORY RESULT= INVALID Neisser NEGATIV No No No NEGATIV Oct 22 ia E informa informa informa E 2015 gonorrh tion in tion in tion in RESULT= 10:00 oeae source source source WITHIN AM rRNA data data data NORMAL [Presen ce] in LIMITSP Unspeci OSITIVE fied specime RESULT= n by Probe & ABNORMA target LEQUIVO LEYDI amplifi RESULT= cation method INDETER MINATEU NSATISF ACTORY RESULT= INVALID THE APTIMA COMBO 2 ASSAY IS NOT INTENDE D FOR THE EVALUAT ION OF SUSPECT EDSEXUA L ABUSE OR FOR OTHER MEDICO- LEGAL INDICAT IONS. FOR THOSE PATIENT S FORWHOM A FALSE POSITIV E RESULT MAY HAVE ADVERSE PSYCHO- SOCIAL IMPACT, [facility] [place] MMENDS RETESTI NG.\.br \This report contain s patient informa tion that must be protect ed in accorda nce with the Health Insuran ce Portabi lity and Account ability Act. CHLAMYDIA AND GONORRHEA TESTING Observa Value Referen Units Interpr Notes Date tion ce etation Range COLLECT D. 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 in tion in 10:00 source source source source AM data data data data ETHNICI WHITE, No No No No Oct 22 TY NON-HIS informa informa informa informa 2015 PANIC tion in tion in tion in tion in 10:00 source source source source AM data data data data KIT No No No No Oct 22 EXPIRAT 5 informa informa informa informa 2015 ION tion in tion in tion in tion in 10:00 DATE source source source source AM data data data data SYMPTOM NO No No No No Oct 22 S informa informa informa informa 2015 tion in tion in tion in tion in 10:00 source source source source AM data data data data REASON VOLUNTE No No No No Oct 22 FOR ER/MEDI informa informa informa informa 2015 REQUEST LEYDI tion in tion in tion in tion in 10:00 PROBLEM source source source source AM data data data data SPECIME URINE No No No No Oct 22 N informa informa informa informa 2015 SOURCE tion in tion in tion in tion in 10:00 source source source source AM data data data data PREGNAN NO No No No No Oct 22 T informa informa informa informa 2015 tion in tion in tion in tion in 10:00 source source source source AM data data data data CHART [id number] No No No Oct 22 NUMBER [id number] informa informa informa informa 2015 tion in tion in tion in tion in 10:00 source source source source AM data data data data Chlamyd Pending No No No No Oct 22 ia informa informa informa informa 2015 trachom tion in tion in tion in tion in 10:00 atis source source source source AM rRNA data data data data [Presen ce] in Unspeci fied specime n by Probe & target amplifi cation method Neisser Pending No No No \.br\Oct 22 ia informa informa informa is 2015 gonorrh tion in tion in tion in report 10:00 oeae source source source contain AM rRNA data data data s [Presen patient ce] in Unspeci informa fied tion specime that n by must be Probe & target protect ed in amplifi accorda cation nce method with the Health Insuran ce Portabi lity and Account ability Act.
--- OUTSIDE RECORDS SUMMARY | 2017-02-19 08:23 | External Medical Summary Rpt | CCD ---
Author Author , RIVER HOLMAN Address Unknown Phone [email or web address] Immunization Name Date Rout CVX Reac Dose Comm Prov Is Faci e tion ent ider Refu lity Give sed n Infl 03-1 150 0.50 Hist TAL No H149 uenz 8-20 mL oric E a 16 al ANDR Quad Info EA Inj rmat ion - Sour ce Unsp ecif ied HPV4 06-2 62 999 Hist [place] No RI 9-20 oric (Gar 09 al dasi Info l) rmat ion - Sour ce Unsp ecif ied MCV4 06-2 114 999 Hist [place] No RI 9-20 oric (Men 09 al actr Info a) rmat ion - Sour ce Unsp ecif ied Tdap 02-2 115 999 Hist H149 No H149 , 4-20 oric Adso 09 al rbed Info rmat ion - Sour ce Unsp ecif ied Vari 04-1 21 999 Hist [place] No RI cell 1-20 oric a 02 al Info rmat ion - Sour ce Unsp ecif ied Gagandeep 11-1 10 999 Hist [place] No RI o-IP 9-20 oric V 01 al Info rmat ion - Sour ce Unsp ecif ied DTP 11-1 1 999 Hist RI No RI 9-20 oric 01 al Info rmat ion - Sour ce Unsp ecif ied MMR 11-1 3 999 Hist RI No RI 9-20 oric 01 al Info rmat ion - Sour ce Unsp ecif ied DTP 04-1 1 999 Hist RI No RI 2-19 oric 99 al Info rmat ion - Sour ce Unsp ecif ied MMR 04-1 3 999 Hist RI No RI 2-19 oric 99 al Info rmat ion - Sour ce Unsp ecif ied Gagandeep 04-1 10 999 Hist RI No RI o-IP 2-19 oric V 99 al Info rmat ion - Sour ce Unsp ecif ied MMR 01-2 3 999 Hist H149 No H149 6-19 oric 99 al Info rmat ion - Sour ce Unsp ecif ied DTaP 01-2 107 999 Hist H149 No H149 , UF 6-19 oric 99 al Info rmat ion - Sour ce Unsp ecif ied Gagandeep 10-0 2 999 Hist H149 No H149 o-OP 6-19 oric V 98 al Info rmat ion - Sour ce Unsp ecif ied Hib, 10-0 17 999 Hist H149 No H149 UF 6-19 oric 98 al Info rmat ion - Sour ce Unsp ecif ied Vari 10-0 21 999 Hist H149 No H149 cell 6-19 oric a 98 al Info rmat ion - Sour ce Unsp ecif ied DTP- 03-2 22 999 Hist RI No RI Hib 4-19 oric 98 al Info rmat ion - Sour ce Unsp ecif ied Hep 03-2 45 999 Hist RI No RI B, 4-19 oric UF 98 al Info rmat ion - Sour ce Unsp ecif ied DTP- 01-2 22 999 Hist RI No RI Hib 0-19 oric 98 al Info rmat ion - Sour ce Unsp ecif ied Gagandeep 01-2 10 999 Hist RI No RI o-IP 0-19 oric V 98 al Info rmat ion - Sour ce Unsp ecif ied DTP- 11-2 22 999 Hist RI No RI Hib 1-19 oric 97 al Info rmat ion - Sour ce Unsp ecif ied Gagandeep 11-2 10 999 Hist RI No RI o-IP 1-19 oric V 97 al Info rmat ion - Sour ce Unsp ecif ied Hep 10-2 8 999 Hist H149 No H149 B, 3-19 oric ped/ 97 al adol Info rmat ion - Sour ce Unsp ecif ied Hep 09-1 Intr 45 999 Hist RI No RI B, 9-19 amus oric UF 97 cula al r Info rmat ion - Sour ce Unsp ecif ied
--- OUTSIDE RECORDS SUMMARY | 2017-02-19 08:23 | External Medical Summary Rpt ---
Author Author [employer]IVER [employer], [employer]IVER [employer] Organization [employer] Address Unknown Phone Unavailable Results CHLAMYDIA AND GONORRHEA TESTING Observa Value Referen Units Interpr Notes Date tion ce etation Range COLLECT D. 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 CHLAMYDIA AND GONORRHEA TESTING Observa Value Referen Units Interpr Notes Date tion ce etation Range COLLECT D. 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
--- OUTSIDE RECORDS SUMMARY | 2017-02-19 08:23 | External Medical Summary Rpt | CCD ---
Author Author , RIVER HOLMAN Address Unknown Phone [email or web address] Immunization Name Date Rout CVX Reac Dose Comm Prov Is Faci e tion ent ider Refu lity Give sed n Infl 03-1 150 0.50 Hist TAL No H149 uenz 8-20 mL oric E a 16 al ANDR Quad Info EA Inj rmat ion - Sour ce Unsp ecif ied HPV4 06-2 62 999 Hist [place] No [place] 9-20 oric (Gar 09 al dasi Info l) rmat ion - Sour ce Unsp ecif ied MCV4 06-2 114 999 Hist [place] No [place] 9-20 oric (Men 09 al actr Info a) rmat ion - Sour ce Unsp ecif ied Tdap 02-2 115 999 Hist H149 No H149 , 4-20 oric Adso 09 al rbed Info rmat ion - Sour ce Unsp ecif ied Vari 04-1 21 999 Hist [place] No [place] cell 1-20 oric a 02 al Info rmat ion - Sour ce Unsp ecif ied Gagandeep 11-1 10 999 Hist [place] o-IP 9-20 oric V 01 al Info rmat ion - Sour ce Unsp ecif ied DTP 11-1 1 999 Hist [place] 9-20 oric 01 al Info rmat ion - Sour ce Unsp ecif ied MMR 11-1 3 999 Hist [place] 9-20 oric 01 al Info rmat ion - Sour ce Unsp ecif ied DTP 04-1 1 999 Hist [place] 2-19 oric 99 al Info rmat ion - Sour ce Unsp ecif ied MMR 04-1 3 999 Hist [place] No [place] 2-19 oric 99 al Info rmat ion - Sour ce Unsp ecif ied Gagandeep 04-1 10 999 Hist [place] o-IP 2-19 oric V 99 al Info [...] ecif ied DTP- 03-2 22 999 Hist [place] Hib 4-19 oric 98 al Info rmat ion - Sour ce Unsp ecif ied Hep 03-2 45 999 Hist [place] No [place] B, 4-19 oric UF 98 al Info rmat ion - Sour ce Unsp ecif ied DTP- 01-2 22 999 Hist [place] Hib 0-19 oric 98 al Info rmat ion - Sour ce Unsp ecif ied Gagandeep 01-2 10 999 Hist [place] o-IP 0-19 oric V 98 al Info rmat ion - Sour ce Unsp ecif ied DTP- 11-2 22 999 Hist [place] Hib 1-19 oric 97 al Info rmat ion - Sour ce Unsp ecif ied Gagandeep 11-2 10 999 Hist [place] No [place] o-IP 1-19 oric V 97 al Info rmat ion - Sour ce Unsp ecif ied Hep 10-2 8 999 Hist H149 No H149 B, 3-19 oric ped/ 97 al adol Info rmat ion - Sour ce Unsp ecif ied Hep 09-1 Intr 45 999 Hist [place] No [place] B, 9-19 amus oric UF 97 cula al r Info rmat ion - Sour ce Unsp ecif ied
[2017-03-07] MEDS ORDERED: BACTRIM DS 8001 TA1 PO (14:20)
== END 2017-02-16 11:12 | disposition home or self-care (01) ==
LOC: UTC 10:42
PROVIDERS: Nurse Practitioner
DX: B37.3 Candidiasis of vulva and vagina (principal)

== ENCOUNTER 2017-03-14 14:12 | Emergency (ER) | payer MEDICAID ==
[~2017-03-14] VITALS: Ht 152.4 cm; Wt 52.2 kg
[~2017-03-14 14:12] MED LIST changes: +BACTRIM DS 8001 TA1 PO; +DIFLUCAN150 MG PO
--- NOTE | 2017-03-14 14:16 | Emergency Room Report ---
History of Present Illness Time Seen by MD Tellez Presenting Problem in Triage Pt arrived:Walked Presenting Problem:PT C/O SHARP PAINS IN HER LOWER ABD AND NAUSEA FOR THE PAST WEEK. 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 N Clinical Suspician of Infection? N Mental Status: 1 - Regular (Normal Baseline) Sepsis Risk:Low Sepsis Risk Have you (or family members/close friends) recently traveled outside the [place]? N If Yes, where/when: Have you had exposure to infectious disease within the past month? N TB? Other? Specify: Patient reports very light menses one week ago, and no menses last month; she is worried she may be . She is on OCP per her PCP and denies missing any pills. She has felt bloated since starting Bactrim last week for UTI. No fever. Having some nausea and bilateral pelvic bloating. Has occasional whitish discharge, not itching; denies new sexual partners; denies dyspareunia. No hematuria. No diarrhea. ALLERGIES Coded Allergies: No Known Allergies (01/03/17) Home Medications Reported Medications NORETHINDRONE AC-ETH ESTRADIOL (Microgestin 21 1-20 Tablet) 1 TAB PO DAILY History Medical History General CAD? No Angina: No VT: No Hypertension? No Hyperlipidemia? No CHF? No DVT? No PE? No COPD? No Asthma? No Anemia? No GERD? No Gastric ulcers? No GI Bleed? No Hernia? No Thyroid Problems? No Hypothyroidism? No CVA? No Seizures? No Diabetes? No Renal Insuffiency? No End Stage Renal Disease? No UTI? No Stones? No BPH? No GB Disease: No Nephritic Syndrome? No Asplenia? No Hepatitis? No Sickle Cell Disease? No Arthritis? No Migraines? No Cataracts? No Glaucoma? No MRSA? No HIV? No TB? No Anxiety? No Depression? No Cancer? No More? No Immunization Hx DT/Tetanus 1-4 YRS Surgical Hx Previous Surgery?Y Tonsils EARTUBES Social History Alcohol Alcohol: No Review of Systems All Other Systems Reviewed and Negative Gastrointestinal see HPI Genitourinary see HPI. Physical Exam Vital Signs Vital Signs Date Time Temp Pulse Resp B/P Pulse O2 O2 Flow FiO2 Ox Delivery Rate 03/14 1418 98.3 100 16 159/80 98 General Appearance normal appearance, WD/WN, no apparent distress Eye Exam - bilateral eye normal exam Neck normal inspection, non-tender, supple Respiratory Status Yes: trachea midline, chest symmetrical, non tender chest. No: respiratory distress, tender on palpation, use of accessory muscles, pain on inspiration, pain on expiration, productive cough, non productive cough. Lung Sounds bilateral: normal breath sounds, lungs clear. Cardiovascular normal exam, regular rate/rhythm, no peripheral edema, no gallop, no JVD, no murmur, no rub Gastrointestinal normal bowel sounds, normal exam, non tender, soft, no organomegaly, no guarding, no rebound Back no CVA tenderness Extremities normal range of motion Strength 5 Upper Ext (L), 5 Upper Ext (R), 5 Lower Ext (L), 5 Lower Ext (R) Neurologic alert, normal exam, no motor/sensory deficits, oriented x 3 Glascow Coma Scale Glascow Coma Scale Response Value EYE response: 4 Spontaneously 4 MOTOR response: 6 OBEYS 6 VERBAL response: 5 Oriented & Converses 5 Total 15 Skin intact, normal color, warm/dry Medical Decision Making LABS/Meds/Orders Pt receiving controlled substance in ED? No Results/Orders Laboratory Tests 03/14/17 1424: Urine Color YELLOW, Urine Appearance CLEAR, Urine pH 6.0, Ur Specific Assumption >= 1.030, Urine Protein TRACE H, Urine Ketones NEGATIVE, Urine Blood NEGATIVE, Urine Nitrate NEGATIVE, Urine Bilirubin NEGATIVE, Urine Urobilinogen 2.0, Ur Leukocyte Esterase 1+ H, Urine Glucose NEGATIVE Current Medication Orders Sig/Frida Start time Last Medication Dose Route Stop Time Status Admin Ceftriaxone Sodium 250 MG ONCE ONE 03/14 1500 AC 03/14 IM 03/14 1501 1458 Lidocaine HCl 0.9 ML ONCE ONE 03/14 1500 AC 03/14 IM 03/14 1501 1458 Ceftriaxone Sodium 0 .STK-MED ONE 03/14 1456 DC .ROUTE Lidocaine HCl 0 .STK-MED ONE 03/14 1455 DC IJ Orders Procedure Date/time Status CHLAMYDIA/GC 03/14 1437 Active URINALYSIS/COMPLETE 03/14 141 Complete URINE 03/14 141 Complete Departure Departure Time of Disposition 1454 Disposition DC Home or Self Care(routine) Clinical Impression Primary Impression: UTI (urinary tract infection) Qualifiers: Urinary tract infection type: acute cystitis Hematuria presence: without hematuria Qualified Code: N30.00 - Acute cystitis without hematuria Condition STABLE Referrals Jarvis ONTIVEROS,Lion Oscar MD,Rolando Paige Patient Instructions Urinary Tract Infection Additional Instructions Recommend repeat test every three or four days until seen by director of provider relations of choice; see Dr. Conley or Dr. Oscar, simulation technician, for follow up evaluation and testing; Rx Macrobid for UTI. Tylenol as needed for pain. Recommend eating a small amount of yogurt daily to keep normal intestinal darlene working. Discharge Counseling Counseled pt/family regarding diagnosis, test results, medications/RX, home care, follow up needs Prescriptions Current Visit Scripts NITROFURANTOIN MONOHYD/M-CRYST (Macrobid 100 MG Capsule) 100 MG PO BID #14 CAP ED Critical Care Critical Care No at 9937
--- OUTSIDE RECORDS SUMMARY | 2017-03-14 14:31 | External Medical Summary Rpt | CCD ---
Author Author , RIVER SEXTONANN Address Unknown Phone [email or web address] Care Team Providers Care Rubble Placer Name Role Phone [facility], Unavailable Unavailable [facility] Sacha Newman MD, Unavailable Unavailable Sacha Newman MD [facility] Unavailable Unavailable [id number] # [id number], [facility] [id number] # [id number] [facility] # Unavailable Unavailable [id number], [facility] # [id number] Purpose Continuity of Care Document - 09-03-2009 through 2016 Problems Code Diagnosis DOS Provider Status 922.32 922.32 09-21-2012 [facility] E849.4 E849.4 09-21-[address] [facility] AREA E885.9 E885.9 fall09-21-2012 Salvatore FROM [facility] SLIPPING, Hospital TRIPPING, OR STUMBLING [facility] Allergies, Adverse Reactions, Alerts Type Allergy to [...] ia de te s n re d IN 51 05 0 No DO 07 [...] 20 20 RT 3 39 11 11 PR 5 PH CH AR AE MA L [...] 20 RT 1 N 22 11 11 PR 2% 2 PH CH AR AE OI MA L NT CY S ME # NT 10 05 91 CE 68 09 09 0 30 10 WA 71 GA Ac PH 18 -2 -2 .0 L- 35 IN ti AL 00 1 MA 95 EY ve EX 12 20 20 RT 2 IN 10 11 11 PR 1 PH CH 25 AR AE 0 [...] T 05 LL % C GE L MN 00 08 08 0 5. 5 CL [...] TA 8 BL # ET 03 93 MN 00 08 08 10 5 RI 84 [...] 93 MCCORMICK 8 SP # 03 93 Vital Signs 03-09-2013 12:29 Name Value Interpretat [...] Order Detail nces retati t Range on Urinalysis by dipstick (03-07-2017 13:43) Urine 03-07-2 1 1 L NEG complet urobili 017 E.U./dL ed nogen 13:43 detecti on by test str Urine POSITIV NEG complet nitrite 017 E ed 13:43 POSITIV detecti E L on by test strip Urine TRACE NEG complet leukocy 017 TRACE L ed te 13:43 esteras e detecti on by au Urine = 1.015 1.005-1 complet specifi 017 .030 ed c 13:43 gravity measure ment Urine = NEG complet protein 017 NEGATIV ed 13:43 E mg/dL measure ment by automat ed t Urine = 6.5 5.0-8.5 complet pH 017 ed 13:43 Urine NEGATIV NEG complet ketones 017 E ed 13:43 NEGATIV detecti E L on by mg/dL automat ed [place] Glucose = TRACE NEG complet ur 017 ed test 13:43 strip Urine DARK YELLOW complet color 017 YELLOW ed 13:43 DARK YELLOW L Urine TRACE NEG complet blood 017 TRACE L ed detecti 13:43 on Urine NEGATIV NEG complet total 017 E ed bilirub 13:43 NEGATIV in E L detecti on by test Urine Clear CLEAR complet appeara 017 Clear L ed nce 13:43 determi nation Urinalysis macro (dipstick) panel in Urine (03-07-2017 13:43) Appeara Clear CLEAR complet nce of 017 ed Urine 13:43 Bilirub NEGATIV NEG complet in 017 E ed [Presen 13:43 ce] in Urine by Test strip Erythro TRACE NEG Abnorma complet cytes 017 l ed [Presen 13:43 ce] in Urine Color DARK YELLOW complet of 017 YELLOW ed Urine 13:43 Ketones NEGATIV NEG complet 017 E ed [Presen 13:43 ce] in Urine by Automat ed test strip Leukocy TRACE NEG Abnorma complet te 017 l ed esteras 13:43 e [Presen ce] in Urine by Automat ed test strip Nitrite POSITIV NEG Abnorma complet 017 E l ed [Presen 13:43 ce] in Urine by Test strip Urobili 1 NEG complet nogen 017 ed [Presen 13:43 ce] in Urine by Test strip Urinalysis by dipstick (02-16-2017 10:53) Urine = 6.0 5.0-8.5 complet pH 017 ed 10:53 Urine NEGATIV NEG complet ketones 017 E ed 10:53 NEGATIV detecti E L on by mg/dL automat ed [place] Glucose = NEG complet ur 017 NEGATIV ed test 10:53 E strip Urine YELLOW YELLOW complet color 017 YELLOW ed 10:53 L Urine NEGATIV NEG complet blood 017 E ed detecti 10:53 NEGATIV on E L Urine NEGATIV NEG complet total 017 E ed bilirub 10:53 NEGATIV in E L detecti on by test Urine Clear CLEAR complet appeara 017 Clear L ed nce 10:53 determi nation Urine 0.2 0.2 NEG complet urobili 017 L ed nogen 10:53 E.U./dL detecti on by test str Urine NEGATIV NEG complet nitrite 017 E ed 10:53 NEGATIV detecti E L on by test strip Urine 1+ 1+ L NEG complet leukocy 017 ed te 10:53 esteras e detecti on by au Urine = 1.025 1.005-1 complet specifi 017 .030 ed c 10:53 gravity measure ment Urine 3 + NEG complet protein 017 mg/dL ed 10:53 measure ment by automat ed t Urinalysis macro (dipstick) panel in Urine (02-16-2017 10:53) Appeara Clear CLEAR complet nce of 017 ed Urine 10:53 Bilirub NEGATIV NEG complet in 017 E ed [Presen 10:53 ce] in Urine by Test strip Erythro NEGATIV NEG complet cytes 017 E ed [Presen 10:53 ce] in Urine Color 02-16- YELLOW YELLOW complet of 017 ed Urine 10:53 Ketones NEGATIV NEG complet 017 E ed [Presen 10:53 ce] in Urine by Automat ed test strip Leukocy 1+ NEG Abnorma complet te 017 l ed esteras 10:53 e [Presen ce] in Urine by Automat ed test strip Nitrite NEGATIV NEG complet 017 E ed [Presen 10:53 ce] in Urine by Test strip Urobili 2 0.2 NEG complet nogen 017 ed [Presen 10:53 ce] in Urine by Test strip CHLAMYDIA AND GONORRHEA TESTING (10-22-2014 10:00) Chlamyd [...] D. 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 complet 013 mg/dL 1 ed SerPl-m 11:03 Cnc CBC with AUTO DIFF (03-09-2013 11:03) WBC # 03-09- 7.9 4.5-13. complet Bld 013 K/MM3 0 ed Auto 11:03 RBC # 4.43 4.2-5.4 complet Bld 013 M/mm3 ed Auto 11:03 Hgb 13.3 12.2-16 complet Bld-mCn 013 g/dL .2 [...] Fr 013 ed Bld 11:03 Auto Eosinop 0.8 % 0.1-12. complet hil Fr 013 0 ed Bld 11:03 Auto Basophi 0.6 % 0.1-2.0 complet ls Fr 013 ed Bld 11:03 Auto Granulo 5.3 1.8-7.8 complet cytes # 013 K/mm3 ed Bld 11:03 Auto Lymphoc 2 2.1 0.7-4.5 complet ytes Fr 013 K/mm3 ed Bld 11:03 Auto Monocyt 0.4 0.1-1.0 complet es # 013 K/mm3 ed Bld 11:03 Auto Eosinop 03-09-2 0.1 0.0-0.4 complet hil # 013 K/mm3 ed Bld 11:03 Auto Basophi 03-09-2 0.1 0-0.2 complet ls # 013 K/MM3 ed Bld 11:03 Auto B-HCG Ur Ql (03-09-2013 10:41) B-HCG NEGATIV NEG complet Ur Ql 013 E ed 10:41 URINALYSIS/COMPLETE (03-09-2013 10:41) URINE YELLOW YELLOW complet COLOR 013 ed 10:41 URINE CLEAR CLEAR complet APPEARA 013 ed NCE 10:41 URINE NEGATIV NEG complet GLUCOSE 013 E ed - 10:41 DIPSTIC K URINE --2 NEGATIV NEG complet BILIRUB 013 E ed IN - 10:41 DIPSTIC K URINE 03-09-2 NEGATIV NEG complet KETONE 013 E mg/dL ed 10:41 URINE --2 Greater 1.005-1 complet SPECIFI 013 than .030 ed C 10:41 or GRAVITY equal to 1.030 URINE 03-09-2 NEGATIV NEG complet BLOOD 013 E ed 10:41 URINE --2 6.0 UNK 5.0-8.5 complet PH 013 ed 10:41 URINE 03-09-2 NEGATIV NEG complet PROTEIN 013 E mg/dL ed - 10:41 DIPSTIC K URINE 03-09-2 0.2 NEG complet UROBILI 013 E.U./dL ed NOGEN - 10:41 DIPSTIC K URINE 03-09-2 NEGATIV NEG complet NITRATE 013 E ed - 10:41 DIPSTIC K URINE 03-09-2 NEGATIV NEG complet LEUK 013 E ed ESTERAS 10:41 E URINE 03-09-2 OCC 0 complet RBC 013 rbc/hpf ed 10:41 URINE 03-09-2 5-10 0-5 complet SQUAMOU 013 #/hpf ed S CELLS 10:41 URINE 03-09-2 TRACE O complet BACTERI 013 ed A 10:41 B-HCG Ur Ql (09-21-2012 21:29) B-HCG -16-2 NEGATIV NEG complet Ur Ql 013 E [...] 5.0-8.5 complet PH 013 ed 21:29 URINE 09-21- TRACE NEG complet PROTEIN 013 mg/dL ed - 21:29 DIPSTIC K URINE 09-21-2 0.2 NEG complet UROBILI 013 E.U./dL ed NOGEN - 21:29 DIPSTIC K URINE 09-21-2 NEGATIV NEG complet NITRATE 013 E ed - 21:29 DIPSTIC K URINE 09-21- TRACE NEG complet LEUK 013 ed ESTERAS 21:29 E URINE 5-10 O complet WBC 013 wbc/hpf ed 21:29 URINE 10-20 0-5 complet SQUAMOU 013 #/hpf ed S CELLS 21:29 Encounters Encounter Start End Date Code Location Performer Type Date Emergency YEHUDA Mistry MD (ER) 3 10:49 3 12:35 [facility] Emergency YEHUDA Newman MD (ER) 3 21:35 3 22:40 [facility]
--- OUTSIDE RECORDS SUMMARY | 2017-03-14 14:31 | External Medical Summary Rpt | CCD ---
Author Author , RIVER SEXTONANN Address Unknown Phone [email or web address] Care Team Providers Care Blood And Plasma Laboratory Assistant Name Role Phone [facility], Unavailable Unavailable [facility] Sacha Newman MD, Unavailable Unavailable Sacha Newman MD [facility] Unavailable Unavailable [id number] # [id number], [facility] [id number] # [id number] [facility] # Unavailable Unavailable [id number], [facility] # [id number] Purpose Continuity of Care Document - 09-03-2009 through 2016 Problems Code Diagnosis DOS Provider Status 922.32 922.32 09-21-2012 [facility] E849.4 E849.4 09-21-2012 Salvatore ACCID IN [facility] AREA E885.9 E885.9 fall09-21-2012 Salvatore FROM [facility] SLIPPING, Hospital TRIPPING, OR STUMBLING [facility] Allergies, Adverse Reactions, Alerts Type Allergy to [...] 20 20 RT 3 39 11 11 MN 5 PH CH AR AE MA L [...] 20 RT 1 N 22 11 11 MN 2% 2 PH CH AR AE OI MA L NT CY S ME # NT 10 05 91 CE 68 09 09 0 30 10 WA 71 GA Ac PH 18 -2 -2 .0 L- 35 IN ti AL 00 1 MA 95 EY ve EX 12 20 20 RT 2 IN 10 11 11 MN 1 PH CH 25 AR AE 0 [...] T 05 LL % C GE L IA 00 08 08 0 5. 5 CL [...] TA 8 BL # ET 03 93 IA 00 08 08 10 5 RI 84 [...] D. complet OR 015 CARDOSO, ed 10:00 DOCTOR OF NURSE ANESTHESIA ETHNICI WHITE, complet TY 015 NON-HIS ed [...] Mistry MD (ER) 3 10:49 3 12:35 [facility] Emergency YEHUDA Newman MD (ER) 3 21:35 3 22:40 [facility]
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
--- OUTSIDE RECORDS SUMMARY | 2017-03-14 14:35 | External Medical Summary Rpt ---
Author Author RIVER Rankin, RIVER Regenerate Organization RIVER Production Address Unknown Phone Unavailable Results Urinalysis macro (dipstick) panel in Urine Observa Value Referen Units Interpr Notes Date tion ce etation Range Appeara Clear CLEAR No No No Mar 07 nce of informa informa informa 2017 Urine tion in tion in tion in 1:43 PM source source source data data data Bilirub NEGATIV NEG No No No Mar 07 in E informa informa informa 2016 [Presen tion in tion in tion in 1:43 PM ce] in source source source Urine data data data by Test strip Erythro TRACE NEG No Abnorma No Mar 07 cytes informa l informa 2016 [Presen tion in tion in 1:43 PM ce] in source source Urine data data Color DARK YELLOW No No No Mar 07 of YELLOW informa informa informa 2017 Urine tion in tion in tion in 1:43 PM source source source data data data Glucose NEG No High No Mar 07 [Mass/vol informati informati 2017 1:43 ume] in on in on in PM Urine by source source Test data data strip Ketones NEGATIV NEG mg/dL No No Mar 07 E informa informa 2016 [Presen tion in tion in 1:43 PM ce] in source source Urine data data by Automat ed test strip pH of 5.0 - 8.5 No Normal No Mar 07 Urine informati informati 2017 1:43 on in on in PM source source data data Protein NEG mg/dL No No Mar 07 [Mass/vol informati informati 2016 1:43 ume] in on in on in PM Urine by source source Automated data data test strip Specific 1.005 - No Normal No Mar 07 gravity 1.030 informati informati 2017 1:43 of Urine on in on in PM source source data data Leukocy TRACE NEG No Abnorma No Mar 07 te informa l informa 2017 esteras tion in tion in 1:43 PM e source source [Presen data data ce] in Urine by Automat ed test strip Nitrite POSITIV NEG No Abnorma No Mar 07 E informa l informa 2016 [Presen tion in tion in 1:43 PM ce] in source source Urine data data by Test strip Urobili 1 NEG E.U./dL No No Mar 07 nogen informa informa 2016 [Presen tion in tion in 1:43 PM ce] in source source Urine data data by Test strip Urinalysis macro (dipstick) panel in Urine Observa Value Referen Units Interpr Notes Date tion ce etation Range Appeara Clear CLEAR No No No Feb 16 nce of informa informa informa 2017 Urine tion in tion in tion in 10:53 source source source AM data data data Bilirub NEGATIV NEG No No No Feb 16 in E informa informa informa 2016 [Presen tion in tion in tion in 10:53 ce] in source source source AM Urine data data data by Test strip Erythro NEGATIV NEG No No No Feb 16 cytes E informa informa informa 2016 [Presen tion in tion in tion in 10:53 ce] in source source source AM Urine data data data Color YELLOW YELLOW No No No Feb 16 of informa informa informa 2017 Urine tion in tion in tion in 10:53 source source source AM data data data Glucose NEG No No No Feb 16 [Mass/vol informati informati informati 2016 ume] in on in on in on in 10:53 AM Urine by source source source Test data data data strip Ketones NEGATIV NEG mg/dL No No Feb 16 E informa informa 2016 [Presen tion in tion in 10:53 ce] in source source AM Urine data data by Automat ed test strip pH of 5.0 - 8.5 No Normal No Feb 16 Urine informati informati 2017 on in on in 10:53 AM source source data data Protein NEG mg/dL High No Feb 16 [Mass/vol informati 2017 ume] in on in 10:53 AM Urine by source Automated data test strip Specific 1.005 - No Normal No Feb 16 gravity 1.030 informati informati 2017 of Urine on in on in 10:53 AM source source data data Leukocy 1+ NEG No Abnorma No Feb 16 te informa l informa 2017 esteras tion in tion in 10:53 e source source AM [Presen data data ce] in Urine by Automat ed test strip Nitrite NEGATIV NEG No No No Feb 16 E informa informa informa 2016 [Presen tion in tion in tion in 10:53 ce] in source source source AM Urine data data data by Test strip Urobili 0.2 NEG E.U./dL No No Feb 16 nogen informa informa 2016 [Presen tion in tion in 10:53 ce] in source source AM Urine data data by Test strip CHLAMYDIA AND GONORRHEA TESTING Observa Value Referen Units Interpr Notes Date tion ce etation Range COLLECT D. 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 CHLAMYDIA AND GONORRHEA TESTING Observa Value Referen Units Interpr Notes Date tion ce etation Range COLLECT D. No No No No Oct 22 OR CARDOSO, informa informa informa informa 2015 DAYCARE WORKER tion in tion in tion in tion [...]
--- OUTSIDE RECORDS SUMMARY | 2017-03-14 14:35 | External Medical Summary Rpt ---
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 MMENDS RETESTI NG.\.br \This report contain s patient informa tion that must be protect ed in accorda nce with the Health Insuran ce Portabi lity and Account ability Act. CHLAMYDIA AND GONORRHEA TESTING Observa Value Referen Units Interpr Notes Date tion ce etation Range COLLECT D. No No No No Oct 22 OR CARDOSO, informa informa informa informa 2015 [employer]OTTOM AS[employer]BLER tion in tion in tion in tion [...]
--- OUTSIDE RECORDS SUMMARY | 2017-03-14 14:35 | External Medical Summary Rpt | CCD ---
Author Author , RIVER HOLMAN Address Unknown Phone [email or web address] Immunization Name Date Rout CVX Reac Dose Comm Prov Is Faci e tion ent ider Refu lity Give sed n Infl 03-1 150 0.50 Hist TAL No H149 uenz 8-20 mL oric E a 16 al ANDR Quad Info EA Inj rmat ion - Sour ce Unsp ecif ied MCV4 06-2 114 999 Hist DC No DC 9-20 oric (Men 09 al actr Info a) rmat ion - Sour ce Unsp ecif ied HPV4 06-2 62 999 Hist DC No DC 9-20 oric (Gar 09 al dasi Info l) rmat ion - Sour ce Unsp ecif ied Tdap 02-2 115 999 Hist H149 No H149 , 4-20 oric Adso 09 al rbed Info rmat ion - Sour ce Unsp ecif ied Vari 04-1 21 999 Hist DC No DC cell 1-20 oric a 02 al Info rmat ion - Sour ce Unsp ecif ied Gagandeep 11-1 10 999 Hist DC No DC o-IP 9-20 oric V 01 al Info rmat ion - Sour ce Unsp ecif ied DTP 11-1 1 999 Hist DC No DC 9-20 oric 01 al Info rmat ion - Sour ce Unsp ecif ied MMR 11-1 3 999 Hist DC No DC 9-20 oric 01 al Info rmat ion - Sour ce Unsp ecif ied DTP 04-1 1 999 Hist DC No DC 2-19 oric 99 al Info rmat ion - Sour ce Unsp ecif ied MMR 04-1 3 999 Hist DC No DC 2-19 oric 99 al Info rmat ion - Sour ce Unsp ecif ied Gagandeep 04-1 10 999 Hist DC No DC o-IP 2-19 oric V 99 al Info [...] ecif ied Hep 03-2 45 999 Hist DC No DC B, 4-19 oric UF 98 al Info rmat ion - Sour ce Unsp ecif ied DTP- 03-2 22 999 Hist DC No DC Hib 4-19 oric 98 al Info rmat ion - Sour ce Unsp ecif ied DTP- 01-2 22 999 Hist DC No DC Hib 0-19 oric 98 al Info rmat ion - Sour ce Unsp ecif ied Gagandeep 01-2 10 999 Hist DC No DC o-IP 0-19 oric V 98 al Info rmat ion - Sour ce Unsp ecif ied Gagandeep 11-2 10 999 Hist DC No DC o-IP 1-19 oric V 97 al Info rmat ion - Sour ce Unsp ecif ied DTP- 11-2 22 999 Hist DC No DC Hib 1-19 oric 97 al Info rmat ion - Sour ce Unsp ecif ied Hep 10-2 8 999 Hist H149 No H149 B, 3-19 oric ped/ 97 al adol Info rmat ion - Sour ce Unsp ecif ied Hep 09-1 Intr 45 999 Hist DC No DC B, 9-19 amus oric UF 97 cula al r Info rmat ion - Sour ce Unsp ecif ied
--- OUTSIDE RECORDS SUMMARY | 2017-03-14 14:35 | External Medical Summary Rpt | CCD ---
Author Author , RIVER HOLMAN Address Unknown Phone [email or web address] Immunization Name Date Rout CVX Reac Dose Comm Prov Is Faci e tion ent ider Refu lity Give sed n Infl 03-1 150 0.50 Hist TAL No H149 uenz 8-20 mL oric E a 16 al ANDR Quad Info EA Inj rmat ion - Sour ce Unsp ecif ied MCV4 06-2 114 999 Hist MO No MO 9-20 oric (Men 09 al actr Info a) rmat ion - Sour ce Unsp ecif ied HPV4 06-2 62 999 Hist MO No MO 9-20 oric (Gar 09 al dasi Info l) rmat ion - Sour ce Unsp ecif ied Tdap 02-2 115 999 Hist H149 No H149 , 4-20 oric Adso 09 al rbed Info rmat ion - Sour ce Unsp ecif ied Vari 04-1 21 999 Hist MO No MO cell 1-20 oric a 02 al Info rmat ion - Sour ce Unsp ecif ied Gagandeep 11-1 10 999 Hist MO No MO o-IP 9-20 oric V 01 al Info rmat ion - Sour ce Unsp ecif ied DTP 11-1 1 999 Hist MO No MO 9-20 oric 01 al Info rmat ion - Sour ce Unsp ecif ied MMR 11-1 3 999 Hist MO No MO 9-20 oric 01 al Info rmat ion - Sour ce Unsp ecif ied DTP 04-1 1 999 Hist MO No MO 2-19 oric 99 al Info rmat ion - Sour ce Unsp ecif ied MMR 04-1 3 999 Hist MO No MO 2-19 oric 99 al Info rmat ion - Sour ce Unsp ecif ied Gagandeep 04-1 10 999 Hist MO No MO o-IP 2-19 oric V 99 al Info [...] ecif ied Hep 03-2 45 999 Hist MO No MO B, 4-19 oric UF 98 al Info rmat ion - Sour ce Unsp ecif ied DTP- 03-2 22 999 Hist MO No MO Hib 4-19 oric 98 al Info rmat ion - Sour ce Unsp ecif ied DTP- 01-2 22 999 Hist MO No MO Hib 0-19 oric 98 al Info rmat ion - Sour ce Unsp ecif ied Gagandeep 01-2 10 999 Hist MO No MO o-IP 0-19 oric V 98 al Info rmat ion - Sour ce Unsp ecif ied Gagandeep 11-2 10 999 Hist MO No MO o-IP 1-19 oric V 97 al Info rmat ion - Sour ce Unsp ecif ied DTP- 11-2 22 999 Hist MO No MO Hib 1-19 oric 97 al Info rmat ion - Sour ce Unsp ecif ied Hep 10-2 8 999 Hist H149 No H149 B, 3-19 oric ped/ 97 al adol Info rmat ion - Sour ce Unsp ecif ied Hep 09-1 Intr 45 999 Hist MO No MO B, 9-19 amus oric UF 97 cula al r Info rmat ion - Sour ce Unsp ecif ied
[2017-03-14 14:45] LABS: URINE BILIRUBIN - DIPSTICK NEGATIVE (NEG); URINE BLOOD NEGATIVE (NEG)
[2017-03-14] MEDS ORDERED: MACROBID100 M3 PO (14:57)
[2017-03-14 15:07] LABS: URINE SQUAMOUS CELLS 20-50 #/hpf (0-5)
[2017-03-14 15:10] VITALS: BP 159/80
[2017-03-17 16:37] LABS: Neisseria gonorrhoeae, NAA Negative (Negative)
== END 2017-03-14 15:11 | disposition home or self-care (01) ==
LOC: ER 14:12
PROVIDERS: Emergency Medicine
DX: N30.00 Acute cystitis without hematuria (principal)

== ENCOUNTER 2017-03-18 08:22 | Emergency (ER) | payer MEDICAID ==
[~2017-03-18] VITALS: Ht 152.4 cm; Wt 50.8 kg
[~2017-03-18 08:22] MED LIST changes: +MACROBID100 M3 PO
--- NOTE | 2017-03-18 08:34 | Emergency Room Report ---
History of Present Illness Time Seen by [id number] Presenting Problem in Triage Pt arrived:Walked Presenting Problem:PT REPORTS WAS DIAGNOSED TUESDAY IN ER WITH BACTERIAL INFECTION, STATES VOMITTING X2 DAYS, PT REPORTS VOMITTING IS ONLY IN THE MORNING. 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 N Clinical Suspician of Infection? N Mental Status: 1 - Regular (Normal Baseline) Sepsis Risk:Low Sepsis Risk Have you (or family members/close friends) recently traveled outside the [place]? N If Yes, where/when: Have you had exposure to infectious disease within the past month? N TB? Other? Specify: Source patient, RN notes reviewed Exam Limitations no limitations Comment Pt seen here 4 days ago and diagnosed with a UTI and treated with Macrobid. She comes back to the ED today with worsening abdominal pain and nausea and pain more in the RLQ. She is sexually active but on BCP and has not missed any pills. Preg test was neg on previous admission. She has not been running any fevers. ALLERGIES Coded Allergies: No Known Allergies (01/03/17) Home Medications Active Scripts NITROFURANTOIN MONOHYD/M-CRYST (Macrobid 100 MG Capsule) 100 MG PO BID #14 CAP Prov: 03/14/17 Reported Medications NORETHINDRONE AC-ETH ESTRADIOL (Microgestin 21 1-20 Tablet) 1 TAB PO DAILY History Medical History General CAD? No Angina: No CA: No Hypertension? No Hyperlipidemia? No CHF? No DVT? No PE? No COPD? No Asthma? No Anemia? No GERD? No Gastric ulcers? No GI Bleed? No Hernia? No Thyroid Problems? No Hypothyroidism? No CVA? No Seizures? No Diabetes? No Renal Insuffiency? No End Stage Renal Disease? No UTI? No Stones? No BPH? No GB Disease: No Nephritic Syndrome? No Asplenia? No Hepatitis? No Sickle Cell Disease? No Arthritis? No Migraines? No Cataracts? No Glaucoma? No MRSA? No HIV? No TB? No Anxiety? No Depression? No Cancer? No More? 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 Physical Exam Vital Signs Vital Signs Date Time Temp Pulse Resp B/P Pulse O2 O2 Flow FiO2 Ox Delivery Rate 03/18 1201 71 22 11/58 99 03/18 1055 98.3 74 22 118/76 100 03/18 0937 98.5 75 20 114/66 100 03/18 0825 97.8 72 18 126/69 97 General Appearance normal appearance, WD/WN, no apparent distress Respiratory Status No: respiratory distress. Cardiovascular normal exam, regular rate/rhythm Gastrointestinal normal bowel sounds, normal exam, non tender Neurologic alert, manager transportation planning II-XII nml as tested, normal exam Medical Decision Making LABS/Meds/Orders Pt receiving controlled substance in ED? No Results/Orders Laboratory Tests 03/18/17 0850: Sodium 136, Potassium 3.8, Chloride 102, Carbon Dioxide 27, BUN 10, Creatinine 0.9, Estimated Creat Clear 80, Estimated GFR (MDRD) 80, Glucose 89, Calcium 8.8, Total Bilirubin 0.3, AST 15, ALT 21, Alkaline Phosphatase 67, Total Protein 7.4, Albumin 4.1, Globulin 3.3 H, Albumin/Globulin Ratio 1.2, Lipase 157, WBC 7.6, RBC 4.39, Hgb 13.2, Hct 40.0, MCV 90.9, RDW 12.4, Plt Count 314, MPV 7.1 L, Gran % 50.4, Gran # 3.8, Lymphocytes % 38.0, Monocytes % 6.4, Eosinophils % 4.0, Basophils % 1.1, Lymphocytes # 2.9, Monocytes # 0.5, Eosinophils # 0.3, Basophils # 0.1, PUBS MCHC 33.0, MCH 30.0 03/18/17 0600: Urine Color YELLOW, Urine Appearance CLEAR, Urine pH 6.0, Ur Specific [place] 1.015, Urine Protein NEGATIVE, Urine Ketones NEGATIVE, Urine Blood NEGATIVE, Urine Nitrate NEGATIVE, Urine Bilirubin NEGATIVE, Urine Urobilinogen 0.2, Ur Leukocyte Esterase NEGATIVE, Urine RBC NONE, Urine WBC OCC, Ur Squamous Epith Cells 20-50, Urine Bacteria 2+, Urine Glucose NEGATIVE Current Medication Orders Sig/Frida Start time Last Medication Dose Route Stop Time Status Admin Diatrizoate Meglum/ 0 .STK-MED ONE 03/18 0853 DC Diatrizoate Sod .ROUTE Sodium Chloride 1,000 ML .STK-MED ONE 03/18 0853 DC IV Ondansetron HCl 0 .STK-MED ONE 03/18 0852 DC .ROUTE Diatrizoate Meglum/ 30 ML ONCE ONE 03/18 0845 DC 03/18 Diatrizoate Sod PO 03/18 0846 0857 Ondansetron HCl 4 MG ONCE ONE 03/18 0845 DC 03/18 IV 03/18 0846 0857 Sodium Chloride 10 ML PRN PRN 03/18 0845 AC IV 03/19 0842 Sodium Chloride 1,000 ML .Q1H1M 03/18 0845 DC 03/18 IV 03/18 0945 0856 Sodium Chloride 10 ML PRN PRN 03/18 0845 AC IV 03/19 0842 Orders Procedure Date/time Status CULTURE, URINE 03/18 UNK Active DIET-NOTHING BY MOUTH 03/[address] ABD/PELVIS REQ 03/18 0843 Complete IV SALINE LOCK 03/18 0843 Active LIPASE 03/18 0843 Complete CBC WITH AUTO DIFF 03/18 0843 Complete CHEM 12 PROFILE 03/18 0843 Complete URINALYSIS/COMPLETE 03/18 0834 Complete URINE 03/18 0834 Complete Departure Departure Time of Disposition 1259 Disposition DC Home or Self Care(routine) Clinical Impression Primary Impression: UTI (urinary tract infection) Qualifiers: Urinary tract infection type: site unspecified Hematuria presence: without hematuria Qualified Code: N39.0 - Urinary tract infection, site not specified Condition STABLE Patient Instructions Acute Cystitis, DI for Acute Cystitis Additional Instructions Continue medicine for UTI and begin Zofran for Nausea, Stay on Clear liquids for 24 to 48 hours and return to the ED as needed. Discharge Counseling Counseled pt/family regarding diagnosis, test results, medications/RX, home care, follow up needs Prescriptions Current Visit Scripts ONDANSETRON HCL (Zofran 4MG Tab) 4 MG PO Q6HP PRN NAUSEA AND VOMITING #40 TAB ED Critical Care Critical Care No If Critical Care minutes are documented, the time involved in the performance of seperately reportable procedures was not counted toward critical care time documented. I directly delivered medical care to this critically ill and/or injured patient. Timely evaluation and treatment was necessary to address the significant organ system(s) dysfunction present in this patient. at 1301
--- OUTSIDE RECORDS SUMMARY | 2017-03-18 08:50 | External Medical Summary Rpt | CCD ---
Author Author , RIVER Organization RIVER Address Unknown Phone [email or web address] Providers Care Geriatric Social Work Professor Name Role Phone Sacha Newman MD, Unavailable Unavailable Sacha Newman MD Purpose Continuity of Care Document - 09-21-2012 through 2016 Problems Code Diagnosis DOS Provider Status 922.32 922.32 09-21-2012 [facility] E849.4 E849.4 09-21-2012 [facility] [place] [facility] AREA E885.9 E885.9 fall09-21-2012 Salvatore FROM [facility] SLIPPING, Hospital TRIPPING, OR STUMBLING [facility] Allergies, Adverse Reactions, Alerts Type Allergy to [...] ve DE IN E #3 TA K Vital Signs 03-09-2013 12:29 Name Value Interpretat [...] Detail nces retati t Range on Urinalysis with microscopy (03-14-2017 14:24) Urine 3 - 5 O complet leukocy 017 wbc/hpf ed [place] 14:24 count (number /volume ) Urine 2.0 2.0 NEG complet urobili 017 L ed nogen 14:24 E.U./dL detecti on by test str [place] 20-50 0-5 complet s 017 20-50 L ed epithel 14:24 #/hpf ial cells detecti on in u Urine > = 1.005-1 complet specifi 017 1.030 .030 ed c 14:24 gravity measure ment Erythro NONE 0 complet cytes 017 NONE L ed detecti 14:24 rbc/hpf on in urine sedimen t Urine = TRACE NEG complet protein 017 mg/dL ed 14:24 measure ment by automat ed t Urine = 6.0 5.0-8.5 complet pH 017 ed 14:24 Urine NEGATIV NEG complet nitrite 017 E ed 14:24 NEGATIV detecti E L on by test strip Mucus 1+ 1+ L OCC complet detecti 017 ed on in 14:24 urine sedimen t by lig Urine NEGATIV NEG complet ketones 017 E ed 14:24 NEGATIV detecti E L on by mg/dL automat ed [place] Glucose = NEG complet ur 017 NEGATIV ed test 14:24 E strip Urine YELLOW YELLOW complet color 017 YELLOW ed 14:24 L Urine NEGATIV NEG complet blood 017 E ed detecti 14:24 NEGATIV on E L Urine NEGATIV NEG complet total 017 E ed bilirub 14:24 NEGATIV in E L detecti on by test Bacteri TRACE O complet a 017 TRACE L ed detecti 14:24 on in urine sedimen t by Urine CLEAR CLEAR complet appeara 017 CLEAR L ed nce 14:24 determi [facility] Urine test (03-14-2017 14:24) Urine = NEG NEG complet pregnan 017 ed cy test 14:24 Urinalysis by dipstick (03-07-2017 13:43) Urine 1 1 L NEG complet urobili 017 [...] 017 Clear L ed nce 13:43 determi [facility] Urinalysis macro (dipstick) panel in Urine (03-07-2017 13:43) Appeara Clear CLEAR complet nce of 017 ed Urine 13:43 Bilirub 10-30-2 NEGATIV NEG complet in 017 E ed [...] (dipstick) panel in Urine (02-16-2017 10:53) Appeara 02-16- Clear CLEAR complet nce of 017 ed [...] ce] in Urine by Test strip Urobili 02-16-2 0.2 NEG complet nogen 017 ed [Presen [...] D. 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 complet hil Fr 013 0 ed Bld 11:03 Auto Basophi 2 0.6 % 0.1-2.0 complet ls Fr 013 ed Bld 11:03 Auto Granulo 2 5.3 1.8-7.8 complet cytes # 013 K/mm3 [...] E ed 10:41 URINALYSIS/COMPLETE (03-09-2013 10:41) URINE 11--2 YELLOW YELLOW complet COLOR 013 ed 10:41 URINE 11--2 CLEAR CLEAR complet APPEARA 013 ed NCE 10:41 URINE 11--2 NEGATIV NEG complet GLUCOSE 013 E ed - 10:41 DIPSTIC K URINE 11--2 NEGATIV NEG complet BILIRUB 013 E ed IN - 10:41 DIPSTIC K URINE 11--2 NEGATIV NEG complet KETONE 013 E mg/dL ed 10:41 URINE 11--2 Greater 1.005-1 complet SPECIFI 013 than .030 ed C 10:41 or GRAVITY equal to 1.030 URINE 11--2 NEGATIV NEG complet BLOOD 013 E ed 10:41 URINE 11--2 6.0 UNK 5.0-8.5 complet PH 013 ed 10:41 URINE 11--2 NEGATIV NEG complet PROTEIN 013 E mg/dL ed - 10:41 DIPSTIC K URINE 11--2 0.2 NEG complet UROBILI 013 E.U./dL ed NOGEN - 10:41 DIPSTIC K URINE --2 NEGATIV NEG complet NITRATE 013 E ed - 10:41 DIPSTIC K URINE --2 NEGATIV NEG complet LEUK 013 E ed ESTERAS 10:41 E URINE --2 OCC 0 complet RBC 013 rbc/hpf ed 10:41 URINE 11--2 5-10 0-5 complet SQUAMOU 013 #/hpf ed S CELLS 10:41 URINE --2 TRACE O complet BACTERI 013 ed A [...] UNK .030 ed C 21:29 GRAVITY URINE -16-2 NEGATIV NEG complet BLOOD 013 E ed 21:29 URINE -16-2 7.0 UNK 5.0-8.5 complet PH 013 ed 21:29 URINE -16-2 TRACE NEG complet PROTEIN 013 mg/dL ed - 21:29 DIPSTIC K URINE 16-2 0.2 NEG complet UROBILI 013 E.U./dL ed NOGEN - 21:29 DIPSTIC K URINE -16-2 NEGATIV NEG complet NITRATE 013 E ed - 21:29 DIPSTIC K URINE -16-2 TRACE NEG complet LEUK 013 ed ESTERAS 21:29 E URINE 09-21-2 5-10 O complet WBC 013 wbc/hpf ed 21:29 URINE -16-2 10-20 0-5 complet SQUAMOU 013 #/hpf ed S CELLS 21:29 Encounters Encounter Start End Date Code Location Performer Type Date Emergency YEHUDA Mistry MD (ER) 3 10:49 3 12:35 [facility] Emergency YEHUDA Newman MD (ER) 3 21:35 3 22:40 [facility]
--- OUTSIDE RECORDS SUMMARY | 2017-03-18 08:50 | External Medical Summary Rpt | CCD ---
Author Author , RIVER Organization RIVER Address Unknown Phone [email or web address] [email or web address] Care Financial Services Agent Name Role Phone Sacha Newman MD, Unavailable Unavailable Sacha Newman MD Purpose Continuity of Care Document - 09-21-2012 through 2016 Problems Code Diagnosis DOS Provider Status 922.32 922.32 09-21-2012 [facility] E849.4 E849.4 09-21-2012 [facility] [place] [facility] AREA E885.9 E885.9 fall09-21-2012 Salvatore FROM [facility] SLIPPING, Hospital TRIPPING, OR STUMBLING [facility] Allergies, Adverse Reactions, Alerts Type [...] 5 O complet leukocy 017 wbc/hpf ed [place] 14:24 count (number /volume ) Urine 2.0 [...] 017 CLEAR L ed nce 14:24 determi [facility] Urine test (03-14-2017 14:24) Urine = NEG [...] 017 Clear L ed nce 13:43 determi [facility] Urinalysis macro (dipstick) panel in Urine (03-07-2017 [...] D. complet OR 015 CARDOSO, ed 10:00 ATTIC BLOWER ETHNICI WHITE, complet TY 015 NON-HIS ed [...] Mistry MD (ER) 3 10:49 3 12:35 [facility] Emergency YEHUDA Newman MD (ER) 3 21:35 3 22:40 [facility]
--- OUTSIDE RECORDS SUMMARY | 2017-03-18 08:51 | External Medical Summary Rpt | CCD ---
Author Author , RIVER HOLMAN Address Unknown Phone [email or web address] Immunization Name Date Rout CVX Reac Dose Comm Prov Is Faci e tion ent ider Refu lity Give sed n Infl 03-1 150 0.50 Hist TAL No H149 uenz 8-20 mL oric E a 16 al ANDR Quad Info EA Inj rmat ion - Sour ce Unsp ecif ied MCV4 06-2 114 999 Hist OK No OK 9-20 oric (Men 09 al actr Info a) rmat ion - Sour ce Unsp ecif ied HPV4 06-2 62 999 Hist OK No OK 9-20 oric (Gar 09 al dasi Info l) rmat ion - Sour ce Unsp ecif ied Tdap 02-2 115 999 Hist H149 No H149 , 4-20 oric Adso 09 al rbed Info rmat ion - Sour ce Unsp ecif ied Vari 04-1 21 999 Hist OK No OK cell 1-20 oric a 02 al Info rmat ion - Sour ce Unsp ecif ied Gagandeep 11-1 10 999 Hist OK No OK o-IP 9-20 oric V 01 al Info rmat ion - Sour ce Unsp ecif ied DTP 11-1 1 999 Hist OK No OK 9-20 oric 01 al Info rmat ion - Sour ce Unsp ecif ied MMR 11-1 3 999 Hist OK No OK 9-20 oric 01 al Info rmat ion - Sour ce Unsp ecif ied Gagandeep 04-1 10 999 Hist OK No OK o-IP 2-19 oric V 99 al Info rmat ion - Sour ce Unsp ecif ied DTP 04-1 1 999 Hist OK No OK 2-19 oric 99 al Info rmat ion - Sour ce Unsp ecif ied MMR 04-1 3 999 Hist OK No OK 2-19 oric 99 al Info rmat ion [...] ecif ied DTP- 03-2 22 999 Hist OK No OK Hib 4-19 oric 98 al Info rmat ion - Sour ce Unsp ecif ied Hep 03-2 45 999 Hist OK No OK B, 4-19 oric UF 98 al Info rmat ion - Sour ce Unsp ecif ied Gagandeep 01-2 10 999 Hist OK No OK o-IP 0-19 oric V 98 al Info rmat ion - Sour ce Unsp ecif ied DTP- 01-2 22 999 Hist OK No OK Hib 0-19 oric 98 al Info rmat ion - Sour ce Unsp ecif ied Gagandeep 11-2 10 999 Hist OK No OK o-IP 1-19 oric V 97 al Info rmat ion - Sour ce Unsp ecif ied DTP- 11-2 22 999 Hist OK No OK Hib 1-19 oric 97 al Info rmat ion - Sour ce Unsp ecif ied Hep 10-2 8 999 Hist H149 No H149 B, 3-19 oric ped/ 97 al adol Info rmat ion - Sour ce Unsp ecif ied Hep 09-1 Intr 45 999 Hist OK No OK B, 9-19 amus oric UF 97 cula al r Info rmat ion - Sour ce Unsp ecif ied
--- OUTSIDE RECORDS SUMMARY | 2017-03-18 08:51 | External Medical Summary Rpt | CCD ---
Author Author [employer]duent Organization [employer] Address Unknown Phone Unavailable Purpose Continuity of Care Document - through 2016
--- OUTSIDE RECORDS SUMMARY | 2017-03-18 08:51 | External Medical Summary Rpt ---
Author Author RIVER Rankin, [employer]IVER [employer] Organization [employer] Address Unknown Phone Unavailable Results Choriogonadotropin.beta subunit [Units] in 24 hour Urine Observa Value Referen Units Interpr Notes Date tion ce etation Range Choriogon NEG No No No Mar 14 adotropin informati informati informati 2017 2:24 .beta on in on in on in PM subunit source source source [Units] data data data in 24 hour Urine Urinalysis macro (dipstick) panel in Urine Observa [...] 5.0 - 8.5 No Normal No Feb 30 Urine informati informati 2017 1:43 on in [...] Feb 16 in E informa informa informa 2017 [Presen tion in tion in tion in [...] No Feb 16 [Mass/vol informati informati informati 2017 ume] in on in on in on [...] No Feb 16 gravity 1.030 informati informati 2016 of Urine on in on in 10:53 [...] OR CARDOSO, informa informa informa informa 2015 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 CHLAMYDIA AND GONORRHEA TESTING Observa Value Referen Units Interpr Notes Date tion ce etation Range COLLECT D. No No No No Oct 22 OR CARDOSO, informa informa informa informa 2015 EMBEDDED HARDWARE ENGINEER tion in tion in tion in tion [...]
--- OUTSIDE RECORDS SUMMARY | 2017-03-18 08:51 | External Medical Summary Rpt ---
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
--- OUTSIDE RECORDS SUMMARY | 2017-03-18 08:51 | External Medical Summary Rpt | CCD ---
Author Author , RIVER HOLMAN Address Unknown Phone [email or web address] Immunization Name Date Rout CVX Reac Dose Comm Prov Is Faci e tion ent ider Refu lity Give sed n Infl 03-1 150 0.50 Hist TAL No H149 uenz 8-20 mL oric E a 16 al ANDR Quad Info EA Inj rmat ion - Sour ce Unsp ecif ied MCV4 06-2 114 999 Hist MT No MT 9-20 oric (Men 09 al actr Info a) rmat ion - Sour ce Unsp ecif ied HPV4 06-2 62 999 Hist MT No MT 9-20 oric (Gar 09 al dasi Info l) rmat ion - Sour ce Unsp ecif ied Tdap 02-2 115 999 Hist H149 No H149 , 4-20 oric Adso 09 al rbed Info rmat ion - Sour ce Unsp ecif ied Vari 04-1 21 999 Hist MT No MT cell 1-20 oric a 02 al Info rmat ion - Sour ce Unsp ecif ied Gagandeep 11-1 10 999 Hist MT No MT o-IP 9-20 oric V 01 al Info rmat ion - Sour ce Unsp ecif ied DTP 11-1 1 999 Hist MT No MT 9-20 oric 01 al Info rmat ion - Sour ce Unsp ecif ied MMR 11-1 3 999 Hist MT No MT 9-20 oric 01 al Info rmat ion - Sour ce Unsp ecif ied Gagandeep 04-1 10 999 Hist MT No MT o-IP 2-19 oric V 99 al Info rmat ion - Sour ce Unsp ecif ied DTP 04-1 1 999 Hist MT No MT 2-19 oric 99 al Info rmat ion - Sour ce Unsp ecif ied MMR 04-1 3 999 Hist MT No MT 2-19 oric 99 al Info rmat ion [...] ecif ied DTP- 03-2 22 999 Hist MT No MT Hib 4-19 oric 98 al Info rmat ion - Sour ce Unsp ecif ied Hep 03-2 45 999 Hist MT No MT B, 4-19 oric UF 98 al Info rmat ion - Sour ce Unsp ecif ied Gagandeep 01-2 10 999 Hist MT No MT o-IP 0-19 oric V 98 al Info rmat ion - Sour ce Unsp ecif ied DTP- 01-2 22 999 Hist MT No MT Hib 0-19 oric 98 al Info rmat ion - Sour ce Unsp ecif ied Gagandeep 11-2 10 999 Hist MT No MT o-IP 1-19 oric V 97 al Info rmat ion - Sour ce Unsp ecif ied DTP- 11-2 22 999 Hist MT No MT Hib 1-19 oric 97 al Info rmat ion - Sour ce Unsp ecif ied Hep 10-2 8 999 Hist H149 No H149 B, 3-19 oric ped/ 97 al adol Info rmat ion - Sour ce Unsp ecif ied Hep 09-1 Intr 45 999 Hist MT No MT B, 9-19 amus oric UF 97 cula al r Info rmat ion - Sour ce Unsp ecif ied
[2017-03-18 09:03] LABS: HEMOGLOBIN 13.2 g/dL (12.2-16.2); LYMPH # 2.9 K/mm3 (0.7-4.5)
[2017-03-18 10:07] LABS: URINE BILIRUBIN - DIPSTICK NEGATIVE (NEG); URINE BLOOD NEGATIVE (NEG)
[2017-03-18 10:26] LABS: URINE SQUAMOUS CELLS 20-50 #/hpf (0-5)
--- NOTE | 2017-03-18 11:09 | RADIOLOGY REPORT PS360 ---
CT ABD PELVIS W/O CONTRAST CLINICAL INDICATION: Right lower quadrant pain, lower abdominal pain with nausea and vomiting RLQ PAIN ORDERING PHYSICIAN: Apollo Mendoza MD PATIENT AGE: 22 years COMPARISON: None TECHNIQUE: Axial images obtained with sagittal and coronal reformats. PROCEDURE: Oral Contrast: Gastrografin IV Contrast: None . FINDINGS: Lung bases are clear. The liver, spleen, adrenal glands, and pancreas are unremarkable. No calcified gallstones. No intestinal obstruction or free air. There is a tiny supraumbilical hernia containing fat. Unremarkable appendix. No evidence of diverticulitis, intestinal obstruction, or free air. No renal calculi, ureteral calculi, or hydronephrosis. There is a small amount fluid in the cul-de-sac. This is of questionable clinical significance and may be physiologic. No acute bony anomalies. IMPRESSION: No acute intra-abdominal or pelvic findings. No evidence of appendicitis or obstructing ureteral calculus. Tiny supraumbilical hernia containing fat
[2017-03-18] MEDS ORDERED: ZOFRAN4 MG PO (13:00)
[2017-03-18 13:09] VITALS: BP 116/62
== END 2017-03-18 13:10 | disposition home or self-care (01) ==
LOC: ER 08:22
PROVIDERS: General Practice
DX: N39.0 Urinary tract infection, site not specified (principal); F17.210 Nicotine dependence, cigarettes, uncomplicated
CPT/HCPCS: J2405